=== PATIENT | male | born 1950 | race Caucasian/White ===

== ENCOUNTER 2018-04-07 16:15 | Emergency (ER) | payer MEDICARE ==
--- NOTE | 2018-04-07 18:14 | ER Document Report ---
ED Fall - General Chief Complaint: Fall Stated Complaint: FALL/RIB PAIN Time Seen by Provider: 04/07/18 17:38 Primary Care Provider: SOSA ALLEN [NO LOCAL MD] - Follow up as needed Notes: 67-year-old male to emergency department for evaluation of right posterior chest wall pain and right hip pain. Hurts to take a deep breath. Fell several days ago. Pain is getting worse. Denies any loss of consciousness. No neck pain, back pain. No abdominal pain. No hematuria. No other symptoms at this time. Was going to see his primary care doctor but they said that they would not be able to get x-rays so sent him here for initial evaluation and treatment. - HPI Occurred: Other - Several days ago Where: Home Context: Tripped Associated symptoms: denies: Lost consciousness, Dazed/confused, Difficulty breathing, Difficulty walking, Became dizzy/fainted, Blood in stool Location of injury/pain: Chest, Hip - Related data Allergies/Adverse Reactions: No Known Allergies Allergy (Unverified 04/07/18 16:16) Past Medical History - General Information source: Patient - Social History Smoking Status: Former Smoker Chew tobacco use (# tins/day): No Frequency of alcohol use: Daily Drug Abuse: None Lives with: Spouse/Significant other Family History: Reviewed & Not Pertinent Patient has suicidal ideation: No Patient has homicidal ideation: No Renal/ Medical History: Denies: Hx Peritoneal Dialysis Review of Systems - Review of Systems Notes: Constitutional: denies: Chills, Diaphoresis, Fever, Malaise, Weakness EENT: denies: Eye discharge, Blurred vision, Tearing, Double vision, Nose congestion, Nose discharge, Throat swelling, Mouth pain Cardiovascular: denies: Palpitations, Heart racing, Orthopnea, Dyspnea, Chest pain Respiratory: denies: Cough, Hurts to breathe, Wheezing, Shortness of breath Gastrointestinal: denies: Abdominal pain, Diarrhea, Nausea, Vomiting, Black stools, bright red blood in stool Genitourinary: denies: Burning, Dysuria, Discharge, Frequency, Flank pain, Hematuria Musculoskeletal: denies: Joint pain, Joint swelling, Muscle pain, Muscle stiffness, back pain. Does complain of right hip pain and right posterior chest wall pain with bruising. Hematologic/Lymphatic: denies: Anemia, Easy bleeding, Easy bruising, Blood clots Neurological/Psychological: denies: Confusion, Dementia, Depression, Loss of consciousness Skin: No lesions, no masses, no skin breakdown, no abscesses Physical Exam - Vital signs Vitals: Temp Pulse Resp BP Pulse Ox 98.5 F 85 20 168/90 H 100 04/07/18 16:26 04/07/18 16:26 04/07/18 16:26 04/07/18 16:26 04/07/18 16:26 Interpretation: Normal - General General appearance: Appears well, Alert - HEENT Head: Normocephalic, Atraumatic Eyes: Normal Pupils: PERRL - Respiratory Respiratory status: No respiratory distress Chest status: Tender, Pain with deep breathing, Splinting, Other - Tenderness to palpation with ecchymosis noted on the right lower posterior chest wall. Breath sounds: Normal Chest palpation: Normal - Cardiovascular Rhythm: Regular Heart sounds: Normal auscultation Murmur: No - Abdominal Inspection: Normal Distension: No distension Bowel sounds: Normal Tenderness: Nontender Organomegaly: No organomegaly - Back Back: Normal, Nontender - Extremities General upper extremity: Normal inspection, Nontender, Normal color, Normal ROM, Normal temperature General lower extremity: Normal inspection, Tender - Wound tenderness to palpation right lateral trochanter area., Normal color, Normal ROM, Normal temperature, Normal weight bearing. No: Rodo's sign - Neurological Neuro grossly intact: Yes Cognition: Normal Orientation: AAOx4 [place] Coma Scale Eye Opening: Spontaneous [place] Coma Scale Verbal: Oriented Reg Coma Scale Motor: Obeys Commands Reg Coma Scale Total: 15 Speech: Normal Motor strength normal: LUE, RUE, LLE, RLE Sensory: Normal - Psychological Associated symptoms: Normal affect, Normal mood - Skin Skin Temperature: Warm Skin Moisture: Dry Skin Color: Normal, Other - Contusion to the right posterior chest wall Course - Re-evaluation Re-evalutation: 04/07/18 18:56 We will get x-ray of the right hip and chest/ribs. 04/07/18 20:16 Hip/Pelvis X-Ray 04/07/18 18:28 IMPRESSION: No fracture. Ribs w/Chest X-Ray 04/07/18 18:28 IMPRESSION: No fracture. 04/07/18 20:16 No evidence of fracture. Toradol was given. Will prescribe patient some medication for his pain. Recommend close outpatient follow-up. Patient did not want hydrocodone. Will give him a trial of Percocet instead and some anti- inflammatories. Will DC at this time in stable condition. - Vital Signs Vital signs: Temp Pulse Resp BP Pulse Ox 98.5 F 85 20 168/90 H 100 04/07/18 16:26 04/07/18 16:26 04/07/18 16:26 04/07/18 16:26 04/07/18 16:26 Discharge - Discharge Clinical Impression: Chest wall contusion Qualifiers: Encounter type: initial encounter Laterality: right Qualified Code(s): S20.211A - Contusion of right front wall of thorax, initial encounter Condition: Good Disposition: HOME, SELF-CARE Instructions: Rib Contusion ([facility]), Rib Injuries and Fractures ([facility]) Additional Instructions: Please continue to take deep breaths as a big concerning complication of rib fractures and contusions is a pneumonia that can develop due to not taking big deep breaths. Take your pain medication if needed. Follow-up with your regular doctor. Return for any worsening symptoms or concerns. Prescriptions: Meloxicam [Mobic] 7.5 mg PO DAILY 20 Days #20 tablet Oxycodone HCl/Acetaminophen [Percocet 5-325 mg Tablet] 1 tab PO Q6H PRN 5 Days #20 tablet PRN Reason: Referrals: LOCALMD,NO [NO LOCAL MD] - Follow up as needed
[2018-04-07] MEDS ORDERED: KETOROLAC TROMETHAMINE 60 MG/2 ML SDV IM ONE (18:57)
[2018-04-07] MEDS ORDERED: ACETAMINOPHEN 325 MG TABLET PO ONE (18:57)
--- NOTE | 2018-04-07 20:02 | RADIOLOGY REPORT (SQ) ---
EXAM DESCRIPTION: XR HIP 2 OR MORE VIEWS COMPLETED DATE/TME: 04/07/2018 18:28 CLINICAL HISTORY: 67 years, Male, fall Findings: Mild right hip degenerative changes. No fracture or dislocation. Soft tissues are unremarkable. IMPRESSION: No fracture.
--- NOTE | 2018-04-07 20:03 | RADIOLOGY REPORT (SQ) ---
EXAM DESCRIPTION: XR RIBS UNILATERAL WITH CHEST COMPLETED DATE/TME: 04/07/2018 18:28 CLINICAL HISTORY: 67 years, Male, fall Findings: The heart is mildly enlarged. No consolidation or pleural effusion. No pulmonary edema or pneumothorax. The right ribs appear intact with no displaced fracture. IMPRESSION: No fracture.
[2018-04-07] MEDS ORDERED: OXYCODONE-ACETAMINOPHEN 5-325 MG TABLET PO ONE (20:27)
[2018-04-07 20:57] VITALS: BP 176/96
== END 2018-04-07 21:01 | disposition home or self-care (01) ==
LOC: ER 16:15
DX: S20.211A Contusion of right front wall of thorax, initial encounter (principal); M25.551 Pain in right hip; W01.0XXA Fall on same level from slipping, tripping and stumbling without subsequent striking against object, initial encounter; Z87.891 Personal history of nicotine dependence
CPT/HCPCS: 99283; 96372; 73502; 71101; A9270 ×2; J1885

== ENCOUNTER → 2018-05-07 | Outpatient (CLI) | payer MEDICARE ==
--- NOTE | 2018-05-07 12:47 | RADIOLOGY REPORT (SQ) ---
EXAM DESCRIPTION: NM WHOLE BODY BONE SCAN COMPLETED DATE/TIME: 05/07/2018 12:26 pm REASON FOR STUDY: C61 MALIGNANT NEOPLASM OF PROSTATE C61 MALIGNANT NEOPLASM OF PROSTATE COMPARISON: Right ribs and PA chest film 04/07/2018 RADIONUCLIDE AND DOSE: 20.9 millicuries Tc99m MDP. The route of agent administration: Intravenous. ADDITIONAL DRUGS AND DOSES: None. TECHNIQUE: Routine delayed images at 3 hour post radionuclide injection acquired of the bony skeleto n including anterior and posterior whole-body projections and additional focused images as needed. LIMITATIONS: None. FINDINGS: BONES: Increased uptake right posterior 11th rib worrisome for a healing rib fracture. There is increased uptake along the right L1, L2 and L3 transverse processes also could be related to a healing fractures. There is increased uptake over the right knee lateral tibial plateau which could be seen with healing fracture. Increased uptake at the bilateral acromioclavicular joints, 1st carpometacarpal joints, and intertars al joints in characteristic locations for osteoarthritis. KIDNEYS: Symmetric excretion without obstruction. OTHER: No other significant finding. IMPRESSION: No bone scan findings worrisome for metastatic disease given history of prostate cancer. Healing right posterior 11th rib, and right L1, L2, and L3 transverse process fractures. Increased uptake right knee lateral tibial plateau also likely due to healing fracture COMMENT: Quality measure 147: Current bone scan is compared with any available plain radiographs, p rior bone scans, and CT/MRI. TECHNICAL DOCUMENTATION: JOB ID: [id number] [employer]- All Rights Reserved Reading location - IP/workstation name: [email or web address]
== END ==
LOC: RAD 08:25
PROVIDERS: ATTEND Urology
DX: C61 Malignant neoplasm of prostate (principal)
CPT/HCPCS: 78306; A9561; Q9969

== ENCOUNTER 2019-06-09 23:21 | Inpatient (IN) | payer MEDICARE ==
[2019-06-10 00:30] LABS: VENOUS BLOOD BASE EXCESS -0.8 mmol/L; VENOUS BLOOD HCO3 21.5 mmol/L (20-32); VENOUS BLOOD PCO2 30.3 mmHg (35-63); VENOUS BLOOD PH 7.47 (7.30-7.42)
[2019-06-10 00:30] LABS: ABSOLUTE LYMPHOCYTES (AUTO) 0.8 10^3/uL (0.5-4.7); ABSOLUTE MONOCYTES (AUTO) 1.6 10^3/uL (0.1-1.4); ABSOLUTE NEUT (AUTO) 8.9 10^3/uL (1.7-8.2); BASOPHILS % (AUTO) 0.2 % (0-2); HEMATOCRIT 42.4 % (37.9-51.0); HEMOGLOBIN 14.6 g/dL (13.5-17.0); LYMPHOCYTES % (AUTO) 7.4 % (13-45); MEAN CORPUSCULAR HEMOGLOBIN 31.7 pg (27.0-33.4); MEAN CORPUSCULAR HGB CONC 34.4 g/dL (32.0-36.0); MEAN CORPUSCULAR VOLUME 92 fl (80-97); MONOCYTES % (AUTO) 14.4 % (3-13); PLATELET COUNT 227 10^3/uL (150-450); RED CELL DISTRIBUTION WIDTH 13.3 % (11.5-14.0); TOTAL CELLS COUNTED % (AUTO) 100 %; WHITE BLOOD COUNT 11.4 10^3/uL (4.0-10.5)
[2019-06-10 00:44] LABS: ALBUMIN 4.1 g/dL (3.5-5.0); ALKALINE PHOSPHATASE 71 U/L (38-126); ANION GAP 17 (5-19); ASPARTATE AMINO TRANSFERASE 42 U/L (17-59); BILIRUBIN,DIRECT 0.7 mg/dL (0.0-0.4); BLOOD UREA NITROGEN 22 mg/dL (7-20); CALCIUM 9.4 mg/dL (8.4-10.2); CARBON DIOXIDE 21 mmol/L (22-30); CHLORIDE 89 mmol/L (98-107); GLUCOSE 111 mg/dL (75-110); POTASSIUM 3.5 mmol/L (3.6-5.0); TOTAL PROTEIN 7.7 g/dL (6.3-8.2)
[2019-06-10 00:48] LABS: INTERNATIONAL RATION (INR) 1.16; PROTHROMBIN TIME 14.9 SEC (11.4-15.4)
[2019-06-10] MEDS ORDERED: ACETAMINOPHEN 325 MG TABLET PO ONE (01:29)
[2019-06-10] MEDS ORDERED: NORMAL SALINE 1000 ML 1,000 ML IV ONE (01:29)
[2019-06-10] MEDS ORDERED: POTASSIUM CHLORIDE 10 MEQ TABLET.ER PO ONE (01:30)
--- NOTE | 2019-06-10 01:38 | ER Document Report ---
Entered by OTILIO TEMPLE SCRIBE 06/10/19 0016 Acting as scribe for:ELENITA MONTENEGRO IV, MD ED General - General Mode of Arrival: Medic Information source: Patient, Emergency Med Personnel TRAVEL OUTSIDE OF THE [place] IN LAST 30 DAYS: No <ELENITA MONTENEGRO IV - Last Filed: 06/10/19 05:14> <GUS PRIEST - Last Filed: 06/10/19 08:47> - General Chief Complaint: Fever Stated Complaint: MUSCLE SPASMS,BACK PAIN,REMORS,KNEE PAIN,NECK PAIN Time Seen by Provider: 06/10/19 00:12 Primary Care Provider: PREMA HERNANDEZ MD [NO LOCAL MD] - Follow up as needed Notes: This 69 year old male patient brought in by EMS presents to the ED today with complaints of lower extremity weakness that started x5 days ago. ED nurse reports that the patient recently returned from a 73-day cruise x7 days ago and his symptoms started x2 days after his return. ED nurse states that the patient also complained of fatigue, fever, and tremors. Patient denies body aches or cough. (ELENITA MONTENEGRO IV) - Related Data Allergies/Adverse Reactions: No Known Allergies Allergy (Unverified 04/07/18 16:16) Past Medical History - General Information source: Patient, Emergency Med Personnel - Social History Smoking Status: Former Smoker Cigarette use (# per day): Yes Chew tobacco use (# tins/day): No Smoking Education Provided: No Frequency of alcohol use: Rare Drug Abuse: None Family History: Reviewed & Not Pertinent Patient has suicidal ideation: No Patient has homicidal ideation: No - Past Medical History Cardiac Medical History: Reports: Hx Hypertension Malignancy Medical History: Reports Hx Prostate Cancer Past Surgical History: Reports: Hx Orthopedic Surgery - elbow <ELENITA MONTENEGRO IV - Last Filed: 06/10/19 05:14> Review of Systems - Review of Systems Constitutional: See HPI, Fever, Other - Fatigue EENT: No symptoms reported Cardiovascular: No symptoms reported Respiratory: No symptoms reported Gastrointestinal: No symptoms reported Genitourinary: No symptoms reported Male Genitourinary: No symptoms reported Musculoskeletal: See HPI, Other - Lower extremity weakness Skin: No symptoms reported Hematologic/Lymphatic: No symptoms reported Neurological/Psychological: See HPI, Tremor -: Yes All other systems reviewed and negative <ELENITA MONTENEGRO IV - Last Filed: 06/10/19 05:14> Physical Exam - General General appearance: Alert - HEENT Head: Normocephalic, Atraumatic Eyes: Normal Pupils: PERRL - Respiratory Respiratory status: No respiratory distress Chest status: Nontender Breath sounds: Normal Chest palpation: Normal - Cardiovascular Rhythm: Regular, Tachycardia Heart sounds: Normal auscultation Murmur: No Friction rub: No Gallop: None auscultated - Abdominal Inspection: Normal Distension: No distension Bowel sounds: Normal Tenderness: Nontender - Abdomen soft Organomegaly: No organomegaly - Back Back: Normal, Nontender - Extremities General upper extremity: Normal inspection General lower extremity: Normal inspection - Neurological Neuro grossly intact: Yes - Psychological Associated symptoms: Normal affect, Normal mood - Skin Skin Temperature: Warm Skin Moisture: Dry Skin Color: Normal <ELENITA MONTENEGRO IV - Last Filed: 06/10/19 05:14> - Vital signs Vitals: Resp 29 H 06/09/19 23:30 Course - Laboratory Result Diagrams: 06/09/19 23:25 06/09/19 23:25 - Consults dr. wei hernandez Time consulted: 05:00 - requested ct abd/pelvis given fever without source Consulted provider: will come to ER <ELENITA MONTENEGRO IV - Last Filed: 06/10/19 05:14> - Laboratory Result Diagrams: 06/09/19 23:25 06/09/19 23:25 <GUS PRIEST - Last Filed: 06/10/19 08:47> - Vital Signs Vital signs: Temp Pulse Resp BP Pulse Ox 98.8 F 17 132/77 H 100 06/10/19 07:02 06/10/19 07:00 06/10/19 07:00 06/10/19 07:00 - Laboratory Laboratory results interpreted by me: 06/09/19 06/09/19 06/09/19 23:25 23:25 23:46 WBC 11.4 H Lymph % (Auto) 7.4 L [place] % (Auto) 14.4 H Absolute Neuts (auto) 8.9 H Absolute Monos (auto) 1.6 H VBG pH VBG pCO2 Sodium 127.0 L Potassium 3.5 L Chloride 89 L Carbon Dioxide 21 L BUN 22 H Est GFR (MDRD) Non-Af 57 L Glucose 111 H Total Bilirubin 2.0 H Direct Bilirubin 0.7 H Urine Protein 30 H Urine Ketones 20 H Urine Blood SMALL H 06/09/19 23:54 WBC Lymph % (Auto) [place] % (Auto) Absolute Neuts (auto) Absolute Monos (auto) VBG pH 7.47 H VBG pCO2 30.3 L Sodium Potassium Chloride Carbon Dioxide BUN Est GFR (MDRD) Non-Af Glucose Total Bilirubin Direct Bilirubin Urine Protein Urine Ketones Urine Blood - Consults dr. wei hernandez Reason for consultation: 06/10/19 05:14 fever, hyponatremia, ataxia (MONIELENITA CEDENO IV) Discharge <ELENITA MONTENEGRO IV - Last Filed: 06/10/19 05:14> - Discharge Admitting Provider: [place] (Hospitalist) - Karin Valencia NP Unit Admitted: [facility] <GUS PRIEST - Last Filed: 06/10/19 08:47> - Discharge Clinical Impression: Ataxia, Hyponatremia, Pelvic abscess in male Fever Qualifiers: Fever type: unspecified Qualified Code(s): R50.9 - Fever, unspecified Condition: Good Disposition: ADMITTED INPATIENT Referrals: PREMA HERNANDEZ MD [NO LOCAL MD] - Follow up as needed I personally performed the services described in the documentation, reviewed and edited the documentation which was dictated to the scribe in my presence, and it accurately records my words and actions.
[2019-06-10 02:06] LABS: A TYPE INFLUENZA AG NEGATIVE (NEGATIVE); B INFLUENZA AG NEGATIVE (NEGATIVE)
--- NOTE | 2019-06-10 02:40 | RADIOLOGY REPORT (SQ) ---
CLINICAL INDICATION: FEVER, WEAKNESS. TECHNIQUE: A single portable AP view was obtained of the chest at 0219 hours. COMPARISON: April 07, 2018. FINDINGS: The cardiomediastinal silhouette is prominent but stable. The lungs are grossly clear. No evidence of effusion or pneumothorax. The visualized bones are unremarkable. IMPRESSION: No evidence of active intrathoracic disease. Chronic parenchymal lung change
--- NOTE | 2019-06-10 02:49 | RADIOLOGY REPORT (SQ) ---
INDICATION: ATAXIA. COMPARISON: None CORRELATION: None TECHNIQUE: Noncontrast spiral axial CT images were obtained from the skull base to vertex. This exam was performed according to our departmental dose-optimization program, which includes automated exposure control, adjustment of the mA and/or kV according to patient size and/or use of iterative reconstruction techniques. FINDINGS: There is no evidence of acute intracranial hemorrhage, midline shift, mass effect or mass lesion. Calderón-white differentiation is normal. There is no evidence of acute large territory infarct. Age-related involutional changes are identified. Presumed old small vessel ischemic changes are seen predominantly in a periventricular distribution.. The visualized paranasal sinuses are grossly clear. The orbits and eyeballs are unremarkable. The mastoid air cells are clear. Skull base and calvarium appear intact. IMPRESSION: No acute intracranial process is identified. Age-related involutional changes are identified. Presumed old small vessel ischemic changes are seen predominantly in a periventricular distribution.
[2019-06-10 04:14] LABS: APPEARANCE,URINE CLEAR; BILIRUBIN,URINE NEGATIVE (NEGATIVE); COLOR,URINE YELLOW; GLUCOSE, URINE NEGATIVE (NEGATIVE); KETONES,URINE 20 mg/dL (NEGATIVE); PROTEIN,URINE 30 mg/dL (NEGATIVE); URINE SPECIFIC GRAVITY 1.019; UROBILINOGEN,URINE NEGATIVE mg/dL (<2.0)
[2019-06-10] MEDS ORDERED: PIPERACILLIN/TAZOBACTAM 4.5 GM VIAL IV ONE (04:41)
[2019-06-10] MEDS ORDERED: NORMAL SALINE IV ONE (04:41)
[2019-06-10] MEDS: MAGNESIUM SULFATE/D5W 1 GM/100 ML RTUPB IV SCH ×2 (04:43→06:54)
--- NOTE | 2019-06-10 06:28 | RADIOLOGY REPORT (SQ) ---
EXAM DESCRIPTION: CT ABDOMEN PELVIS WITH IV CONTRAST COMPLETED DATE/TME: 06/10/2019 04:46 CLINICAL HISTORY: 69 years Male, elevated bilirubin, fever, CREAT 1.24 Comparison: None. Technique: IV contrast. Coronal and sagittal reformat. This exam was performed according to our departmental dose-optimization program, which includes automated exposure control, adjustment of the mA and/or kV according to patient size and/or use of iterative reconstruction technique. [facility]: Dose Right [facility]: CareDose [facility]: Dose Right [facility]: Teradose 4D [facility]: Certify LIMITATIONS: Arm position. Findings: 10 x 11 x 10 cm inflamed cystic mass of the right paracentral pelvis may indicate abscess. 10 x 7 x 2 cm loculated cystic lesion of the left paracentral pelvis at the medial aspect of the left psoas. On post excretion imaging, the mid and distal right ureter is not opacified. Mild dilation of the visualized proximal and mid right renal collecting system may involve low-grade obstruction. Advanced coronary arterial calcification/stent. Atherosclerotic vascular disease. Renal arterial calcification. Moderate left inguinal fat only hernia. 0.7 cm left renal stone. No ascites. No pneumoperitoneum. Nonvisualized appendix. No gross evidence of gallbladder inflammation, hepatobiliary obstruction, or portal vein defect. No bowel obstruction. No evidence of abdominal aortic aneurysm. No gross evidence of thecal sac/cord or nerve root compression. Inferior thorax, liver, gallbladder, pancreas, spleen, adrenals, renal system, gastrointestinal tract, pelvic organs, lymphatics, vasculature, and musculoskeleton appear otherwise unremarkable. IMPRESSION: 1. 11 cm right parapelvic mass may indicate an abscess, chronic hematoma, or other neoplasm. 2. 10 cm left paracentral tubular cystic collection medial to the left psoas indicate a lymphocele or other neoplasm. 3. Possible low-grade obstruction at the right distal ureter. 4. 0.7 cm nonobstructing left renal stone.
[2019-06-10] MEDS ORDERED: ACETAMINOPHEN 325 MG TABLET PO PRN (09:39)
[2019-06-10] MEDS ORDERED: MAG HYDROX/AL HYDROX/SIMETH SUSP 30 ML UDCUP PO PRN (09:45)
[2019-06-10] MEDS ORDERED: ONDANSETRON HCL INJ/PF 4 MG/2 ML SDV IV PRN (09:45)
[2019-06-10 10:30] LABS: ABSOLUTE LYMPHOCYTES (AUTO) 0.7 10^3/uL (0.5-4.7); ABSOLUTE MONOCYTES (AUTO) 1.5 10^3/uL (0.1-1.4); ABSOLUTE NEUT (AUTO) 9.3 10^3/uL (1.7-8.2); BASOPHILS % (AUTO) 0.3 % (0-2); HEMOGLOBIN 13.3 g/dL (13.5-17.0); LYMPHOCYTES % (AUTO) 5.7 % (13-45); MEAN CORPUSCULAR HEMOGLOBIN 32.4 pg (27.0-33.4); MEAN CORPUSCULAR HGB CONC 34.9 g/dL (32.0-36.0); MEAN CORPUSCULAR VOLUME 93 fl (80-97); MONOCYTES % (AUTO) 12.7 % (3-13); PLATELET COUNT 206 10^3/uL (150-450); RED CELL DISTRIBUTION WIDTH 13.3 % (11.5-14.0); SEGMENTED NEUTROPHILS % (AUTO) 81.3 % (42-78); TOTAL CELLS COUNTED % (AUTO) 100 %; WHITE BLOOD COUNT 11.4 10^3/uL (4.0-10.5)
[2019-06-10] MEDS ORDERED: DEXTROSE 5%-LACTATED RINGERS 1,000 ML IV PRN (10:46)
[2019-06-10] MEDS ORDERED: ALBUTEROL SULFATE HFA (90 MCG/PUFF) 8 GM MDI IH PRN (10:47)
[2019-06-10 10:48] LABS: ANION GAP 15 (5-19); BLOOD UREA NITROGEN 18 mg/dL (7-20); CALCIUM 8.5 mg/dL (8.4-10.2); CARBON DIOXIDE 19 mmol/L (22-30); CHLORIDE 95 mmol/L (98-107); GLUCOSE 129 mg/dL (75-110); POTASSIUM 4.3 mmol/L (3.6-5.0)
--- NOTE | 2019-06-10 10:58 | PDOC H&P ---
History of Present Illness Admission Date/PCP: 06/10/19 09:34 OLGA BHAGAT MD Patient complains of: Generalized weakness, fatigue, rigors History of Present Illness: ANGEL CLARK is a 69 year old male with a past medical history significant for hypertension, remote prostate cancer, and arthritis who presented to the emergency department last night with a complaint of 1 week of progressively worsening generalized weakness, severe fatigue, and rigors. He denies high fevers at home, although, admits that he has not been checking consistently. U norah arrival to the emergency department, he developed shortness of breath with hypoxia (70%) on room air and diarrhea. Of note, the patient returned from a 73-day cruise to [facility] 8 days ago and has been and self quarantine at home since. Evaluation in the emergency department revealed low-grade fever (99.6), tachycardia (HR 142), stable blood pressure, tachypnea (RR 36), and hypoxia on room air (70%). CBC shows mild leukocytosis with 11.4, lymphocytosis of 7.4, normal coags, dehydration by chemistry with mild hyponatremia, hypokalemia, mildly elevated BUN, total bili 2.0, normal lactic acid, normal troponin, benign urinalysis, negative flu. COVID[address] and chest x-ray are benign. Abdominal CT revealed multiple parapelvic masses possibly indicating abscess versus chronic hematoma or other neoplasm. He has been provided 1 dose of IV Zosyn and is referred to the hospitalist service for admission and management of the above-stated complaints and findings. Past Medical History Cardiac Medical History: Reports: Hyperlipidema, Hypertension Denies: Congestive Heart Failure, Coronary Artery Disease, Myocardial Infarction Pulmonary Medical History: Reports: None EENT Medical History: Reports: None Neurological Medical History: Reports: None Endocrine Medical History: Reports: None Renal/ Medical History: Reports: None Malignancy Medical History: Reports: Other - Prostate GI Medical History: Reports: None Musculoskeltal Medical History: Reports: None Skin Medical History: Reports: None Psychiatric Medical History: Reports: None Traumatic Medical History: Reports: None Hematology: Reports: None Infectious Medical History: Reports: None Past Surgical History Past Surgical History: Reports: Orthopedic Surgery - elbow, Other - Prostate Social History Information Source: Patient Lives with: Spouse/Significant other Smoking Status: Former Smoker Electronic Cigarette use?: No Frequency of Alcohol Use: None Hx Recreational Drug Use: No Hx Prescription Drug Abuse: No - Advance Directive Resuscitation Status: Do Not Resuscitate Surrogate healthcare decision maker:: The patient's , Razia Mendoza. Made multiple attempts to contact her by phone, call does not connect. Will need to verify patient's home phone number. Family History Family History: Reviewed & Not Pertinent Parental Family History Reviewed: Yes Children Family History Reviewed: Yes Sibling(s) Family History Reviewed.: Yes Medication/Allergy Home Medications: Aspirin [Ecotrin 81 mg EC Tablet] 1 tab PO DAILY 04/07/18 Furosemide [Lasix 20 mg Tablet] 1 tab PO DAILY 04/07/18 Meloxicam [Mobic] 7.5 mg PO DAILY 20 Days #20 tablet 04/07/18 Metoprolol Succinate 1 tab PO DAILY 04/07/18 Oxycodone HCl/Acetaminophen [Percocet 5-325 mg Tablet] 1 tab PO Q6H PRN 5 Days #20 tablet 04/07/18 Potassium Chloride 1 tab PO DAILY 04/07/18 Saw [place] 1 tab PO DAILY 04/07/18 Simvastatin 1 tab PO DAILY 04/07/18 Allergies/Adverse Reactions: No Known Allergies Allergy (Unverified 04/07/18 16:16) Review of Systems Constitutional: PRESENT: anorexia, chills, fatigue, headache(s), weakness, other - rigors. ABSENT: fever(s), weight gain, weight loss Eyes: ABSENT: visual disturbances Ears: ABSENT: hearing changes Nose, Mouth, and Throat: PRESENT: headache(s) Cardiovascular: ABSENT: chest pain, dyspnea on exertion, edema, orthropnea, palpitations Respiratory: ABSENT: cough, hemoptysis Gastrointestinal: PRESENT: diarrhea. ABSENT: abdominal pain, constipation, hematemesis, hematochezia, nausea, vomiting Genitourinary: ABSENT: dysuria, hematuria Musculoskeletal: ABSENT: joint swelling Integumentary: ABSENT: rash, wounds Neurological: ABSENT: abnormal gait, abnormal speech, confusion, dizziness, focal weakness, syncope Psychiatric: ABSENT: anxiety, depression, homidical ideation, suicidal ideation Endocrine: ABSENT: cold intolerance, heat intolerance, polydipsia, polyuria Hematologic/Lymphatic: ABSENT: easy bleeding, easy bruising Physical Exam Vital Signs: Temp Pulse Resp BP Pulse Ox 98.3 F 16 137/80 H 95 03/27/20 09:25 06/10/19 09:00 06/10/19 08:00 06/10/19 09:00 Intake & Output 06/09/19 06/10/19 06/11/19 06:59 06:59 06:59 Intake Total 1100 2740 Balance 1100 2740 Weight 88.1 kg General appearance: PRESENT: cooperative, mild distress, well-developed, well- nourished, other - Acutely ill-appearing Head exam: PRESENT: atraumatic, normocephalic Eye exam: PRESENT: conjunctiva pink, EOMI, PERRLA. ABSENT: scleral icterus Ear exam: PRESENT: normal external ear exam Mouth exam: PRESENT: dry mucosa, tongue midline Neck exam: ABSENT: carotid bruit, JVD, lymphadenopathy, thyromegaly Respiratory exam: PRESENT: decreased breath sounds - Possibly related to poor inspiratory effort; shallow tachypneic breathing, symmetrical, tachypnea, unlabored, other - Supplemental oxygen by nasal cannula; not home O2 dependent. ABSENT: rales, rhonchi, wheezes Cardiovascular exam: PRESENT: RRR, +S1, +S2, tachycardia. ABSENT: diastolic murmur, rubs, systolic murmur Pulses: PRESENT: +1 pedal pulses bilateral Vascular exam: PRESENT: normal capillary refill GI/Abdominal exam: PRESENT: normal bowel sounds, soft. ABSENT: distended, guarding, mass, organolmegaly, rebound, tenderness Rectal exam: PRESENT: deferred Extremities exam: PRESENT: full ROM. ABSENT: calf tenderness, clubbing, pedal edema Neurological exam: PRESENT: alert, awake, oriented to person, oriented to place, oriented to time, oriented to situation, CN II-XII grossly intact. ABSENT: motor sensory deficit Psychiatric exam: PRESENT: appropriate affect, normal mood. ABSENT: homicidal ideation, suicidal ideation Skin exam: PRESENT: dry, intact, warm. ABSENT: cyanosis, rash Results Laboratory Results: 06/09/19 23:25 06/09/19 23:25 06/09/19 06/09/19 06/09/19 23:25 23:25 23:25 WBC 11.4 H RBC 4.60 Hgb 14.6 Hct 42.4 MCV 92 MCH 31.7 MCHC 34.4 RDW 13.3 Plt Count 227 Seg Neutrophils % 78.0 VBG pH VBG pCO2 VBG HCO3 VBG Base Excess Sodium 127.0 L Potassium 3.5 L Chloride 89 L Carbon Dioxide 21 L Anion Gap 17 BUN 22 H Creatinine 1.24 Est GFR ( Amer) > 60 Glucose 111 H Lactic Acid Calcium 9.4 Magnesium 1.6 Total Bilirubin 2.0 H AST 42 Alkaline Phosphatase 71 Total Protein 7.7 Albumin 4.1 Lipase Urine Color Urine Appearance Urine pH Ur Specific [place] Urine Protein Urine Glucose (UA) Urine Ketones Urine Blood Urine RBC (Auto) 06/09/19 06/09/19 06/09/19 23:25 23:46 23:54 WBC RBC Hgb Hct MCV MCH MCHC RDW Plt Count Seg Neutrophils % VBG pH 7.47 H VBG pCO2 30.3 L VBG HCO3 21.5 VBG Base Excess -0.8 Sodium Potassium Chloride Carbon Dioxide Anion Gap BUN Creatinine Est GFR ( Amer) Glucose Lactic Acid Calcium Magnesium Total Bilirubin AST Alkaline Phosphatase Total Protein Albumin Lipase 190.5 Urine Color YELLOW Urine Appearance CLEAR Urine pH 5.0 Ur Specific [place] 1.019 Urine Protein 30 H Urine Glucose (UA) NEGATIVE Urine Ketones 20 H Urine Blood SMALL H Urine RBC (Auto) 2 06/09/19 06/10/19 06/10/19 23:54 03:32 06:35 WBC RBC Hgb Hct MCV MCH MCHC RDW Plt Count Seg Neutrophils % VBG pH VBG pCO2 VBG HCO3 VBG Base Excess Sodium Potassium Chloride Carbon Dioxide Anion Gap BUN Creatinine Est GFR ( Amer) Glucose Lactic Acid 1.3 2.1 1.0 Calcium Magnesium Total Bilirubin AST Alkaline Phosphatase Total Protein Albumin Lipase Urine Color Urine Appearance Urine pH Ur Specific [place] Urine Protein Urine Glucose (UA) Urine Ketones Urine Blood Urine RBC (Auto) 06/09/19 06/09/19 23:25 23:25 Creatine Kinase 94 Troponin I 0.022 Impressions: Chest X-Ray 06/10/19 01:27 IMPRESSION: No evidence of active intrathoracic disease. Chronic parenchymal lung change Head CT 06/10/19 01:27 IMPRESSION: No acute intracranial process is identified. Age-related involutional changes are identified. Presumed old small vessel ischemic changes are seen predominantly in a periventricular distribution. Abdomen/Pelvis CT 06/10/19 04:46 IMPRESSION: 1. 11 cm right parapelvic mass may indicate an abscess, chronic hematoma, or other neoplasm. 2. 10 cm left paracentral tubular cystic collection medial to the left psoas indicate a lymphocele or other neoplasm. 3. Possible low-grade obstruction at the right distal ureter. 4. 0.7 cm nonobstructing left renal stone. Assessment and Plan - Diagnosis (1) Acute respiratory failure with hypoxia Is this a current diagnosis for this admission?: Yes Plan: Patient presented with generalized symptoms of low grade fever, rigors, generalized weakness, and fatigue. Patient denies recent symptoms of cough or shortness of breath. However, while in the ED, the patient was found to be tachypneic with RR in the 30s and room air SpO2 of 70%. Influenza is negative. COVID19 pending. CXR is clear. ABG pending. Will continue supplemental oxygen as needed to maintain oxygen saturations >89% Will avoid nebulizers at this time and provide albuterol MDI with spacer as needed for wheezing. (2) SIRS (systemic inflammatory response syndrome) Is this a current diagnosis for this admission?: Yes Plan: Influenza negative. COVID19 pending. CXR clear. Blood cultures pending. Urinalysis clear. Stool culture pending Abdominal CT revealed multiple parapelvic masses possibly indicating abscess versus chronic hematoma or other neoplasm. - IR consulted for CT guided needle drainage and culture Continue IV Zosyn for possible intra-abdominal infection. Will adjust as cultures result and/or clear infectious process declares itself. (3) Obs/eval susp exp biolog agent Is this a current diagnosis for this admission?: Yes Plan: High suspicion for COVID19 Influenza negative. COVID testing pending Droplet and contact precautions. Respiratory support as needed. (4) Abnormal abdominal CT scan Is this a current diagnosis for this admission?: Yes Plan: Follow up CT guided needle drainage with cultures. Consider surgical consultation. Antibiotics as above. (5) Hyponatremia Is this a current diagnosis for this admission?: Yes Plan: Has received 3L NS by ED providers. Follow up chemistry is pending. - Time Time Spent with patient: 35 or more minutes Medications reviewed and adjusted accordingly: Yes - Inpatient Certification Based on my medical assessment, after consideration of the patient's comorbidities, presenting symptoms, or acuity I expect that the services needed warrant INPATIENT care.: Yes I certify that my determination is in accordance with my understanding of Medicare's requirements for reasonable and necessary INPATIENT services [42 CFR 412.3e].: Yes Medical Necessity: Need Close Monitoring Due to Risk of Patient Decompensation, Need For IV Fluids, Need For Continuous Telemetry Monitoring, Need for Nebulizer Therapy and Monitoring of Response, Need for IV Antibiotics, Risk of Complication if Not Cared For in Hospital, Risk of Diagnosis Which Will Require Inpatient Eval/Care/Monitoring
--- NOTE | 2019-06-10 11:05 | Progress Note ---
Provider Note Provider Note: Responded to MACHINE MOLDER. Per nursing, they were at the bedside drawing labs when the patient was noted to have increased tachypnea, diaphoresis, with a heart rate increasing to the 120s and SPO2 desat to 80% on nasal cannula at 5 L/min. Patient was placed on NRB with continued tachycardia and low SpO2. ICU team and assurance senior, Dr. Radford came to the bedside to assist. Dr. Radford assisted with verifying the patient's code/intubation status. After discussion with patient, the patient has elected to be full code. Chest CT is ordered and patient is urgently transferred to the ICU. Appreciate nursing, MACHINE MOLDER team, and Dr. Radford's assistance. Critical Care time: [address] Raphael is updated on patient's condition/POC.
[2019-06-10] MEDS ORDERED: LORAZEPAM INJ 2 MG/1 ML VIAL ONE (11:16)
[2019-06-10] MEDS: LORAZEPAM INJ 2 MG/1 ML VIAL IV PRN ×4 (11:20→19:36)
--- NOTE | 2019-06-10 11:20 | EKG REPORT ---
SEVERITY:- ABNORMAL ECG - SINUS TACHYCARDIA PROBABLE LEFT ATRIAL ABNORMALITY LEFT AXIS DEVIATION ABNRM R PROG, CONSIDER ASMI OR LEAD PLACEMENT : Confirmed by: Gee Walsh MD 10-Jun-2019 11:20:10
[2019-06-10 11:35] LABS: ARTERIAL BLOOD BASE EXCESS -4.4 mmol/L; ARTERIAL BLOOD HCO3 18.1 mmol/L (20-24); ARTERIAL BLOOD O2 SATURATION 98.6 % (94-98); ARTERIAL BLOOD PCO2 26.7 mmHg (35-45); ARTERIAL BLOOD PH 7.45 (7.35-7.45); ARTERIAL BLOOD PO2 123.5 mmHg (80-100); ARTERIAL BLOOD TOTAL CO2 18.9 mmol/L (23-27)
--- NOTE | 2019-06-10 11:37 | RADIOLOGY REPORT (SQ) ---
EXAM DESCRIPTION: CT CHEST WITHOUT COMPLETED DATE/TIME: 06/10/2019 11:06 am REASON FOR STUDY: hypoxia COMPARISON: Chest x-ray done earlier the same day. TECHNIQUE: CT scan performed of the chest without intravenous contrast. Images reviewed with lung, soft tissue and bone windows. Reconstructed coronal and sagittal MPR images reviewed. All images st ored on PACS. All CT scanners at this facility use dose modulation, iterative reconstruction, and/or weight based d osing when appropriate to reduce radiation dose to as low as reasonably achievable (ALARA). [facility]: Dose Right [facility]: CareDose [facility]: Dose Right [facility]: Teradose 4D [facility]: [place] RADIATION DOSE: CT Rad equipment meets quality standard of care and radiation dose reduction techniq ues were employed. CTDIvol: 14.4 mGy. DLP: 468 mGy-cm. mGy. LIMITATIONS: No technical limitations. FINDINGS: LUNGS AND PLEURA: Minimal right basilar atelectasis. No consolidation. No effusions. HILAR AND MEDIASTINAL STRUCTURES: No identified masses or abnormal nodes. No obvious aneurysm. HEART AND VASCULAR STRUCTURES: No aneurysm. No pericardial effusion. UPPER ABDOMEN: No significant findings. Limited exam. THYROID AND OTHER SOFT TISSUES: No masses. No adenopathy. BONES: No significant finding. HARDWARE: None in the chest. OTHER: No other significant findings. IMPRESSION: Minimal right basilar atelectasis. No other significant findings. TECHNICAL DOCUMENTATION: JOB ID: [id number] Quality ID # [id number]: Final reports with documentation of one or more dose reduction techniques (e.g., Au tomated exposure control, adjustment of the mA and/or kV according to patient size, use of iterative reconstruction technique) 2010 [employer]- All Rights Reserved Reading location - IP/workstation name: [facility]
[2019-06-10] MEDS ORDERED: INFLUENZA QUAD (6MOS+) 2019-20 VAC 0.5 ML SYR IM ONE (11:39)
[2019-06-10 11:40] LABS: ARTERIAL BLOOD FIO2 4L
[2019-06-10] MEDS ORDERED: ACETAMINOPHEN 650 MG SUPP.RECT PR ONE ×2 (12:49→19:26)
[2019-06-10] MEDS: DOCUSATE SODIUM 100 MG CAPSULE PO SCH (13:14)
--- NOTE | 2019-06-10 13:37 | PDOC CRITICAL CARE PROG REPORT ---
General Date:: 06/10/19 ICU Day:: 1 Hospital Day:: 1 Resuscitation Status: Chemical Code Only Events in the past 12 to 24 Hours:: 69-year-old white male who was in fairly good health. Just returned from a 73- day cruise from [place]. He seemed to be well when he got home but apparently after carrying suitcases upstairs he was complaining of vague symptoms including possibly some neck discomfort. He as had some shaking and confusion. He presented to the ER with tachycardia, low oxygen saturations and some agitation. CT of the abdomen showed a fluid collection next to his bladder. He does have a remote history of prostate cancer and this is felt to possibly be a lymphocele. He also has a history of drinking but his states he did not drink more than 2-3 drinks per day on a trip. He has not been drinking subsequently. He has been complaining of some leg weakness and has fallen once or twice, once apparently on the boat and then he fell out of bed once he got home. He is now in the ICU and sedated with 1 dose of Ativan suggesting that alcohol withdrawal is a possibility. He is having the fluid collection in his pelvis tapped and depending on those findings may need additional work-up such as a LP. - Medications: Medications reviewed and adjusted accordingly: Yes Physical Exam Vital Signs: Temp Pulse Resp BP Pulse Ox 102.9 F H 116 H 26 H 134/87 H 100 06/10/19 11:29 06/10/19 11:29 06/10/19 11:29 06/10/19 11:29 06/10/19 11:29 Intake & Output 06/09/19 06/10/19 06/11/19 06:59 06:59 06:59 Intake Total 1100 2740 Output Total 310 Balance 1100 2430 Weight 88.1 kg 91.2 kg Weight/Height Weight 91.2 kg Height 6 ft General appearance: PRESENT: mild distress Eye exam: PRESENT: EOMI, PERRLA. ABSENT: conjunctival injection Mouth exam: PRESENT: neck supple Neck exam: PRESENT: full ROM. ABSENT: JVD, lymphadenopathy, meningismus, thyromegaly Respiratory exam: PRESENT: clear to auscultation [email or web address] Cardiovascular exam: PRESENT: RRR GI/Abdominal exam: PRESENT: soft. ABSENT: tenderness Extremities exam: ABSENT: joint swelling Neurological exam: PRESENT: alert, awake, oriented to person, oriented to place, oriented to time Psychiatric exam: PRESENT: anxious Skin exam: PRESENT: dry, warm Laboratory/Radiographs Laboratory Results: 06/10/19 10:11 06/10/19 10:11 06/09/19 06/09/19 06/09/19 23:25 23:25 23:25 WBC 11.4 H RBC 4.60 Hgb 14.6 Hct 42.4 MCV 92 MCH 31.7 MCHC 34.4 RDW 13.3 Plt Count 227 Seg Neutrophils % 78.0 Carbonic Acid HCO3/H2CO3 Ratio ABG pH ABG pCO2 ABG pO2 ABG HCO3 ABG O2 Saturation ABG Base Excess VBG pH VBG pCO2 VBG HCO3 VBG Base Excess FiO2 Sodium 127.0 L Potassium 3.5 L Chloride 89 L Carbon Dioxide 21 L Anion Gap 17 BUN 22 H Creatinine 1.24 Est GFR ( Amer) > 60 Glucose 111 H Lactic Acid Calcium 9.4 Magnesium 1.6 Ferritin Total Bilirubin 2.0 H AST 42 Alkaline Phosphatase 71 Total Protein 7.7 Albumin 4.1 Lipase Urine Color Urine Appearance Urine pH Ur Specific [place] Urine Protein Urine Glucose (UA) Urine Ketones Urine Blood Urine RBC (Auto) 06/09/19 06/09/19 06/09/19 23:25 23:46 23:54 WBC RBC Hgb Hct MCV MCH MCHC RDW Plt Count Seg Neutrophils % Carbonic Acid HCO3/H2CO3 Ratio ABG pH ABG pCO2 ABG pO2 ABG HCO3 ABG O2 Saturation ABG Base Excess VBG pH 7.47 H VBG pCO2 30.3 L VBG HCO3 21.5 VBG Base Excess -0.8 FiO2 Sodium Potassium Chloride Carbon Dioxide Anion Gap BUN Creatinine Est GFR ( Amer) Glucose Lactic Acid Calcium Magnesium Ferritin Total Bilirubin AST Alkaline Phosphatase Total Protein Albumin Lipase 190.5 Urine Color YELLOW Urine Appearance CLEAR Urine pH 5.0 Ur Specific [place] 1.019 Urine Protein 30 H Urine Glucose (UA) NEGATIVE Urine Ketones 20 H Urine Blood SMALL H Urine RBC (Auto) 2 06/09/19 06/10/19 06/10/19 23:54 03:32 06:35 WBC RBC Hgb Hct MCV MCH MCHC RDW Plt Count Seg Neutrophils % Carbonic Acid HCO3/H2CO3 Ratio ABG pH ABG pCO2 ABG pO2 ABG HCO3 ABG O2 Saturation ABG Base Excess VBG pH VBG pCO2 VBG HCO3 VBG Base Excess FiO2 Sodium Potassium Chloride Carbon Dioxide Anion Gap BUN Creatinine Est GFR ( Amer) Glucose Lactic Acid 1.3 2.1 1.0 Calcium Magnesium Ferritin Total Bilirubin AST Alkaline Phosphatase Total Protein Albumin Lipase Urine Color Urine Appearance Urine pH Ur Specific [place] Urine Protein Urine Glucose (UA) Urine Ketones Urine Blood Urine RBC (Auto) 06/10/19 06/10/19 06/10/19 10:11 10:11 10:25 WBC 11.4 H RBC 4.10 L Hgb 13.3 L Hct 38.0 MCV 93 MCH 32.4 MCHC 34.9 RDW 13.3 Plt Count 206 Seg Neutrophils % 81.3 H Carbonic Acid 0.80 L HCO3/H2CO3 Ratio 22:1 ABG pH 7.45 ABG pCO2 26.7 L ABG pO2 123.5 H ABG HCO3 18.1 L ABG O2 Saturation 98.6 H ABG Base Excess -4.4 VBG pH VBG pCO2 VBG HCO3 VBG Base Excess FiO2 4L Sodium 128.6 L Potassium 4.3 Chloride 95 L Carbon Dioxide 19 L Anion Gap 15 BUN 18 Creatinine 1.14 Est GFR ( Amer) > 60 Glucose 129 H Lactic Acid Calcium 8.5 Magnesium Ferritin 949.00 H Total Bilirubin AST Alkaline Phosphatase Total Protein Albumin Lipase Urine Color Urine Appearance Urine pH Ur Specific [place] Urine Protein Urine Glucose (UA) Urine Ketones Urine Blood Urine RBC (Auto) 06/09/19 06/09/19 23:25 23:25 Creatine Kinase 94 Troponin I 0.022 Impressions: Chest CT 06/10/19 00:00 IMPRESSION: Minimal right basilar atelectasis. No other significant findings. Chest X-Ray 06/10/19 01:27 IMPRESSION: No evidence of active intrathoracic disease. Chronic parenchymal lung change Head CT 06/10/19 01:27 IMPRESSION: No acute intracranial process is identified. Age-related involutional changes are identified. Presumed old small vessel ischemic changes are seen predominantly in a periventricular distribution. Abdomen/Pelvis CT 06/10/19 04:46 IMPRESSION: 1. 11 cm right parapelvic mass may indicate an abscess, chronic hematoma, or other neoplasm. 2. 10 cm left paracentral tubular cystic collection medial to the left psoas indicate a lymphocele or other neoplasm. 3. Possible low-grade obstruction at the right distal ureter. 4. 0.7 cm nonobstructing left renal stone. Assessment and Plan - Diagnosis (1) Acute respiratory failure with hypoxia Is this a current diagnosis for this admission?: Yes Plan: Patient presented with generalized symptoms of low grade fever, rigors, generalized weakness, and fatigue. Patient denies recent symptoms of cough or shortness of breath. However, while in the ED, the patient was found to be tachypneic with RR in the 30s and room air SpO2 of 70%. Influenza is negative. COVID19 pending. CXR is clear. ABG pending. Will continue supplemental oxygen as needed to maintain oxygen saturations >89% Will avoid nebulizers at this time and provide albuterol MDI with spacer as needed for wheezing. (2) Fever Qualifiers: Fever type: unspecified Qualified Code(s): R50.9 - Fever, unspecified Is this a current diagnosis for this admission?: Yes Plan: Impression: Possible pelvic abscess Hx of prostate cancer Possible acute illness related to travel to [place] Rule out viral process including HANK 19 Plan: Ultrasound-guided drainage of pelvic abscess Empiric antibiotics have been initiated Consider LP after above I have spoken to his hydraulic operator who spoke to his for me IV fluids taking the hyponatremia into account Further evaluation pending course Critical Time Critical Time (minutes): 60 Level of Care: ICU - High complexity case -: 1. The care of a critical patient is a dynamic process. This note is a pharmaceutical specialty representative synopsis but static in nature. The timeframe for treatments given in order is not necessarily the actual time these treatments may have been done. 2. This patient requires critical care secondary to ongoing requirements for therapy not offered or safe outside the critical care environment. Transfer to a lower level of care will result in altered life or limb morbidity and mortality. 3. Multidisciplinary rounds completed. 4. ABCDE bundle addressed.
[2019-06-10] MEDS ORDERED: NORMAL SALINE 1000 ML 1,000 ML IV PRN (13:55)
[2019-06-10] MEDS ORDERED: HEPARIN SOD (PORCINE) 5,000 UNIT/ML 1 ML VIAL SUBCUT SCH (14:00)
--- NOTE | 2019-06-10 14:07 | PDOC CONSULTATION ---
Consultation Consult Date: 06/10/19 Provider Consulted: DEEPTHI CASTRO History of Present Illness Admission Date/PCP: 06/10/19 09:34 OLGA BHAGAT MD Patient complains of: Generalized malaise History of Present Illness: ANGEL CLARK is a 69 year old male who is status post a recent 2-1/2 months long cruise through [facility] presenting with vague complaints and generalized malaise with confusion and mental status changes. Patient is unable to provide a history. But patient came into the ER with apparent respiratory symptoms and compromise. Uncertain whether he had any complaints of abdominal pain. Part of his work-up included a CT scan which demonstrated fluid collecti ons in the abdomen that were well loculated. Patient did have a robotic prostatectomy for prostate cancer several months ago. Uncertain whether he had any complications. But apparently he did well enough that he could go on a cruise. Past Medical History Cardiac Medical History: Reports: Hyperlipidema, Hypertension Denies: Congestive Heart Failure, Coronary Artery Disease, Myocardial Infarction Pulmonary Medical History: Reports: None EENT Medical History: Reports: None Neurological Medical History: Reports: None Endocrine Medical History: Reports: None Renal/ Medical History: Reports: None Malignancy Medical History: Reports: Other - Prostate GI Medical History: Reports: None Musculoskeltal Medical History: Reports: None Skin Medical History: Reports: None Psychiatric Medical History: Reports: None Traumatic Medical History: Reports: None Hematology: Reports: None Infectious Medical History: Reports: None Past Surgical History Past Surgical History: Reports: Orthopedic Surgery - elbow, Other - Prostate Social History Lives with: Spouse/Significant other Smoking Status: Former Smoker Electronic Cigarette use?: No Frequency of Alcohol Use: Heavy Hx Recreational Drug Use: No Hx Prescription Drug Abuse: No - Advance Directive Resuscitation Status: Chemical Code Only Family History Family History: Reviewed & Not Pertinent Parental Family History Reviewed: No Children Family History Reviewed: No Sibling(s) Family History Reviewed.: No Medication/Allergy Home Medications: Aspirin [Ecotrin 81 mg EC Tablet] 1 tab PO DAILY 04/07/18 Furosemide [Lasix 20 mg Tablet] 1 tab PO DAILY 04/07/18 [place] 1 tab PO DAILY 04/07/18 Simvastatin 20 mg PO QHS 04/07/18 Losartan Potassium 100 mg PO DAILY 06/10/19 Metoprolol Tartrate [Lopressor 100 mg Tablet] 50 mg PO Q12 06/10/19 Allergies/Adverse Reactions: No Known Allergies Allergy (Unverified 04/07/18 16:16) Review of Systems ROS unobtainable: Due to mental status Physical Exam Vital Signs: Temp Pulse Resp BP Pulse Ox 102.9 F H 116 H 26 H 134/87 H 100 06/10/19 11:29 06/10/19 11:29 06/10/19 11:29 06/10/19 11:29 06/10/19 11:29 Intake & Output 06/09/19 06/10/19 06/11/19 06:59 06:59 06:59 Intake Total 1100 2740 Output Total 310 Balance 1100 2430 Weight 88.1 kg 91.2 kg General appearance: PRESENT: other - Confused. Sleepy but are easily arousable. Incoherent speech at times. Unable to provide any meaningful history. Respiratory exam: PRESENT: other - Decreased breath sounds. Cardiovascular exam: PRESENT: tachycardia GI/Abdominal exam: PRESENT: other - Soft, no apparent tenderness to palpation but difficult exam due to his mental status. Results Laboratory Results: 06/10/19 10:11 06/10/19 10:11 06/09/19 06/09/19 06/09/19 23:25 23:25 23:25 WBC 11.4 H RBC 4.60 Hgb 14.6 Hct 42.4 MCV 92 MCH 31.7 MCHC 34.4 RDW 13.3 Plt Count 227 Seg Neutrophils % 78.0 Carbonic Acid HCO3/H2CO3 Ratio ABG pH ABG pCO2 ABG pO2 ABG HCO3 ABG O2 Saturation ABG Base Excess VBG pH VBG pCO2 VBG HCO3 VBG Base Excess FiO2 Sodium 127.0 L Potassium 3.5 L Chloride 89 L Carbon Dioxide 21 L Anion Gap 17 BUN 22 H Creatinine 1.24 Est GFR ( Amer) > 60 Glucose 111 H Lactic Acid Calcium 9.4 Magnesium 1.6 Ferritin Total Bilirubin 2.0 H AST 42 Alkaline Phosphatase 71 Total Protein 7.7 Albumin 4.1 Lipase Urine Color Urine Appearance Urine pH Ur Specific [place] Urine Protein Urine Glucose (UA) Urine Ketones Urine Blood Urine RBC (Auto) 06/09/19 06/09/19 06/09/19 23:25 23:46 23:54 WBC RBC Hgb Hct MCV MCH MCHC RDW Plt Count Seg Neutrophils % Carbonic Acid HCO3/H2CO3 Ratio ABG pH ABG pCO2 ABG pO2 ABG HCO3 ABG O2 Saturation ABG Base Excess VBG pH 7.47 H VBG pCO2 30.3 L VBG HCO3 21.5 VBG Base Excess -0.8 FiO2 Sodium Potassium Chloride Carbon Dioxide Anion Gap BUN Creatinine Est GFR ( Amer) Glucose Lactic Acid Calcium Magnesium Ferritin Total Bilirubin AST Alkaline Phosphatase Total Protein Albumin Lipase 190.5 Urine Color YELLOW Urine Appearance CLEAR Urine pH 5.0 Ur Specific [place] 1.019 Urine Protein 30 H Urine Glucose (UA) NEGATIVE Urine Ketones 20 H Urine Blood SMALL H Urine RBC (Auto) 2 06/09/19 06/10/19 06/10/19 23:54 03:32 06:35 WBC RBC Hgb Hct MCV MCH MCHC RDW Plt Count Seg Neutrophils % Carbonic Acid HCO3/H2CO3 Ratio ABG pH ABG pCO2 ABG pO2 ABG HCO3 ABG O2 Saturation ABG Base Excess VBG pH VBG pCO2 VBG HCO3 VBG Base Excess FiO2 Sodium Potassium Chloride Carbon Dioxide Anion Gap BUN Creatinine Est GFR ( Amer) Glucose Lactic Acid 1.3 2.1 1.0 Calcium Magnesium Ferritin Total Bilirubin AST Alkaline Phosphatase Total Protein Albumin Lipase Urine Color Urine Appearance Urine pH Ur Specific [place] Urine Protein Urine Glucose (UA) Urine Ketones Urine Blood Urine RBC (Auto) 06/10/19 06/10/19 06/10/19 10:11 10:11 10:25 WBC 11.4 H RBC 4.10 L Hgb 13.3 L Hct 38.0 MCV 93 MCH 32.4 MCHC 34.9 RDW 13.3 Plt Count 206 Seg Neutrophils % 81.3 H Carbonic Acid 0.80 L HCO3/H2CO3 Ratio 22:1 ABG pH 7.45 ABG pCO2 26.7 L ABG pO2 123.5 H ABG HCO3 18.1 L ABG O2 Saturation 98.6 H ABG Base Excess -4.4 VBG pH VBG pCO2 VBG HCO3 VBG Base Excess FiO2 4L Sodium 128.6 L Potassium 4.3 Chloride 95 L Carbon Dioxide 19 L Anion Gap 15 BUN 18 Creatinine 1.14 Est GFR ( Amer) > 60 Glucose 129 H Lactic Acid Calcium 8.5 Magnesium Ferritin 949.00 H Total Bilirubin AST Alkaline Phosphatase Total Protein Albumin Lipase Urine Color Urine Appearance Urine pH Ur Specific [place] Urine Protein Urine Glucose (UA) Urine Ketones Urine Blood Urine RBC (Auto) 06/09/19 06/09/19 23:25 23:25 Creatine Kinase 94 Troponin I 0.022 Impressions: Chest CT 06/10/19 00:00 IMPRESSION: Minimal right basilar atelectasis. No other significant findings. Chest X-Ray 06/10/19 01:27 IMPRESSION: No evidence of active intrathoracic disease. Chronic parenchymal lung change Head CT 06/10/19 01:27 IMPRESSION: No acute intracranial process is identified. Age-related involutional changes are identified. Presumed old small vessel ischemic changes are seen predominantly in a periventricular distribution. Abdomen/Pelvis CT 06/10/19 04:46 IMPRESSION: 1. 11 cm right parapelvic mass may indicate an abscess, chronic hematoma, or other neoplasm. 2. 10 cm left paracentral tubular cystic collection medial to the left psoas indicate a lymphocele or other neoplasm. 3. Possible low-grade obstruction at the right distal ureter. 4. 0.7 cm nonobstructing left renal stone. Assessment & Plan - Diagnosis (1) Abnormal abdominal CT scan Is this a current diagnosis for this admission?: Yes Plan: Agree with plans for interventional radiology drainage of intra-abdominal fluid collections. I have reviewed the CT scan with radiology. CT scan does not demonstrate any findings that suggest gastrointestinal pathology. Likely these fluid collections are related with his prostate surgery. They could represent lymphoceles or infected hematomas or infected post operative fluid collections. Patient is awake enough to determine whether he has any tenderness on exam and although abdominal exam is not perfect due to his mental status I do not see any evidence of tenderness. He does not complain of abdominal pain. I do not see any role for surgical intervention in this patient. Will defer to hospitalist/supervisor telephone information this expertise in managing this patient.
--- NOTE | 2019-06-10 15:11 | RADIOLOGY REPORT (SQ) ---
EXAM DESCRIPTION: U/S DRAINAGE RETRO/PERITONEAL IMAGES COMPLETED DATE/TIME: 06/10/2019 3:00 pm REASON FOR STUDY: perivesicular fluid collection COMPARISON CT abdomen pelvis done earlier the same day. LIMITATIONS: None. PROCEDURE: After obtaining informed consent, the procedure was performed at bedside due to the patie nt's isolation status. Ultrasound was used to identify the pocket of fluid in the right aspect of th e pelvis. An appropriate access site was selected. The patient was prepped and draped in usual ster ile fashion. The access site was anesthetized with 10 mL 1% lidocaine. Using ultrasound guidance t he collection was cannulated there is immediate return of straw-colored clear fluid. A guidewire was placed. Sequential dilatation performed and an 8 [place] APD catheter placed and formed in the fluid collection. 500 mL of clear straw-colored fluid was removed. Catheter was then removed. Sterile d ressing applied. There were no complications. IMPRESSION: Successful ultrasound guided drainage of the right pelvic fluid collection. Samples wer e obtained and sent to pathology for evaluation. COMMENT: Patient medication list reviewed: Yes- Quality ID# [id number]:Eligible professional attests to doc umenting in the medical record they obtained, updated, or reviewed the patient's current medications. TECHNICAL DOCUMENTATION: JOB ID: [id number] 2010 [employer]- All Rights Reserved Reading location - IP/workstation name: [email or web address]
--- NOTE | 2019-06-10 16:17 | Operative Report ---
Bedside Procedure - History of Present Illness Indication for Procedure: Fever altered mental status Date: 06/10/19 Provider: JUAN MIGUEL SALCEDO - Additional Procedures spinal tap Time performed: 16:00 - 69-year-old white male who recently returned from a cruise to [facility]. He has a fever white count and altered mental status of unclear etiology. consented to the spinal tap. He was placed in the left lateral position with the knees drawn up toward the nose. Lidocaine was applied subcutaneously. A #20 spinal needle was used to enter the L4-5 space. Clear fluid was easily obtained and sent for appropriate studies. The procedure was well-tolerated.
[2019-06-10] MEDS: PIPERACILLIN SODIUM/TAZOBACTAM 3.375 GM in NORMAL SALINE 100 ML IV SCH ×2 (17:56→17:57)
[2019-06-10] MEDS: PANTOPRAZOLE SODIUM 40 MG TABLET.DR PO SCH (17:58)
[2019-06-10 18:27] LABS: GLUCOSE,CSF 69 mg/dL (40-70); PROTEIN,CSF 53 mg/dL (12-60)
[2019-06-10 19:15] LABS: APPEARANCE ALL TUBES CLEAR; COLOR ALL TUBES COLORLESS; CSF TUBE NUMBER 3
[2019-06-10 19:17] LABS: VOLUME TUBE 1 1.5 CC
[2019-06-10 19:19] LABS: VOLUME TUBE 2 0.5 CC
[2019-06-10 19:21] LABS: VOLUME TUBE 3 0.5 CC
[2019-06-10 19:24] LABS: RED BLOOD CELL,CSF 1 /uL (0-10); WHITE BLOOD CELL,CSF 0 /uL (0-5)
[2019-06-10] MEDS ORDERED: HALOPERIDOL LACTATE INJ 5 MG/1 ML VIAL ONE (19:33)
[2019-06-10] MEDS ORDERED: METOPROLOL TARTRATE PF/INJ 5 MG/5 ML SDV IV ONE (19:33)
[2019-06-10] MEDS ORDERED: FUROSEMIDE INJ/PF 40 MG/4 ML SDV ONE (19:33)
[2019-06-10] MEDS: FAMOTIDINE INJ/PF 20 MG/2 ML SDV IV SCH (21:49)
[2019-06-11] MEDS: PIPERACILLIN SODIUM/TAZOBACTAM 3.375 GM in NORMAL SALINE 100 ML IV SCH ×5 (01:07→23:14)
[2019-06-11] MEDS: PANTOPRAZOLE SODIUM 40 MG TABLET.DR PO SCH ×2 (05:18→18:28)
[2019-06-11] MEDS: LORAZEPAM INJ 2 MG/1 ML VIAL IV PRN ×5 (05:18→21:17)
[2019-06-11 05:19] LABS: ARTERIAL BLOOD BASE EXCESS -2.3 mmol/L; ARTERIAL BLOOD H2CO3 0.93 mmol/L (1.05-1.35); ARTERIAL BLOOD HCO3 20.7 mmol/L (20-24); ARTERIAL BLOOD PCO2 30.9 mmHg (35-45); ARTERIAL BLOOD PH 7.44 (7.35-7.45); ARTERIAL BLOOD PO2 103.2 mmHg (80-100); ARTERIAL BLOOD TOTAL CO2 21.7 mmol/L (23-27)
[2019-06-11 05:24] LABS: ABSOLUTE LYMPHOCYTES (AUTO) 0.8 10^3/uL (0.5-4.7); ABSOLUTE MONOCYTES (AUTO) 0.8 10^3/uL (0.1-1.4); ABSOLUTE NEUT (AUTO) 6.8 10^3/uL (1.7-8.2); BASOPHILS % (AUTO) 0.3 % (0-2); EOSINOPHILS % (AUTO) 0.1 % (0-6); HEMATOCRIT 38.5 % (37.9-51.0); HEMOGLOBIN 13.5 g/dL (13.5-17.0); LYMPHOCYTES % (AUTO) 9.4 % (13-45); MEAN CORPUSCULAR HEMOGLOBIN 32.6 pg (27.0-33.4); MEAN CORPUSCULAR HGB CONC 35.1 g/dL (32.0-36.0); MEAN CORPUSCULAR VOLUME 93 fl (80-97); MONOCYTES % (AUTO) 9.7 % (3-13); PLATELET COUNT 208 10^3/uL (150-450); RED BLOOD COUNT 4.15 10^6/uL (4.35-5.55); RED CELL DISTRIBUTION WIDTH 13.2 % (11.5-14.0); SEGMENTED NEUTROPHILS % (AUTO) 80.5 % (42-78); TOTAL CELLS COUNTED % (AUTO) 100 %; WHITE BLOOD COUNT 8.5 10^3/uL (4.0-10.5)
[2019-06-11 05:30] LABS: INTERNATIONAL RATION (INR) 1.35; PROTHROMBIN TIME 16.8 SEC (11.4-15.4)
[2019-06-11 05:32] LABS: PARTIAL THROMBOPLASTIN TIME 46.9 SEC (23.5-35.8)
[2019-06-11 05:34] LABS: ARTERIAL BLOOD FIO2 3L
[2019-06-11 05:50] LABS: ALBUMIN 3.3 g/dL (3.5-5.0); ALKALINE PHOSPHATASE 64 U/L (38-126); ANION GAP 12 (5-19); ASPARTATE AMINO TRANSFERASE 66 U/L (17-59); BILIRUBIN,DIRECT 0.6 mg/dL (0.0-0.4); BILIRUBIN,TOTAL 1.5 mg/dL (0.2-1.3); BLOOD UREA NITROGEN 22 mg/dL (7-20); CALCIUM 8.8 mg/dL (8.4-10.2); CARBON DIOXIDE 21 mmol/L (22-30); CHLORIDE 101 mmol/L (98-107); GLUCOSE 111 mg/dL (75-110); TOTAL PROTEIN 6.6 g/dL (6.3-8.2)
--- NOTE | 2019-06-11 07:02 | RADIOLOGY REPORT (SQ) ---
EXAM: XR Chest, 1 View EXAM DATE/TIME: 06/11/2019 6:09 AM CLINICAL HISTORY: The patient is 69 years old and is Male; pneumonia TECHNIQUE: Frontal view of the chest. COMPARISON: Chest CT from 06/10/2019 FINDINGS: LUNGS: The lungs are mildly hypoinflated but clear. No consolidation visualized. PLEURAL SPACE: No significant pleural effusion. No obvious pneumothorax. HEART: Stable mild enlargement of the cardiac silhouette MEDIASTINUM: Unremarkable. BONES/JOINTS: The bones are unchanged. IMPRESSION: No acute findings visualized in the chest.
[2019-06-11] MEDS ORDERED: ACETAMINOPHEN 650 MG SUPP.RECT PR ONE ×2 (07:31→14:33)
[2019-06-11] MEDS: NORMAL SALINE 1000 ML 1,000 ML IV PRN (08:03)
[2019-06-11] MEDS ORDERED: DEXTROSE 5%-LACTATED RINGERS 1,000 ML IV PRN (08:56)
--- NOTE | 2019-06-11 09:12 | PDOC PROGRESS REPORT ---
Subjective Progress Note for:: 06/11/19 Reason For Visit: RESPIRATORY DISTRESS Lymphocele drained by IR; patient being evaluated for possible malaria Physical Exam Vital Signs: Temp Pulse Resp BP Pulse Ox 101.1 F H 105 H 28 H 94/75 L 100 06/11/19 08:00 06/11/19 08:00 06/11/19 08:00 06/11/19 08:00 06/11/19 08:00 Intake & Output 06/10/19 06/11/19 06/12/19 06:59 06:59 06:59 Intake Total 1100 4040 Output Total 1920 125 Balance 1100 2120 -125 Weight 88.1 kg 91.2 kg Results Laboratory Results: 06/11/19 05:05 06/11/19 05:05 06/10/19 06/10/19 06/10/19 10:11 10:11 10:25 WBC 11.4 H RBC 4.10 L Hgb 13.3 L Hct 38.0 MCV 93 MCH 32.4 MCHC 34.9 RDW 13.3 Plt Count 206 Seg Neutrophils % 81.3 H Carbonic Acid 0.80 L HCO3/H2CO3 Ratio 22:1 ABG pH 7.45 ABG pCO2 26.7 L ABG pO2 123.5 H ABG HCO3 18.1 L ABG O2 Saturation 98.6 H ABG Base Excess -4.4 FiO2 4L Sodium 128.6 L Potassium 4.3 Chloride 95 L Carbon Dioxide 19 L Anion Gap 15 BUN 18 Creatinine 1.14 Est GFR ( Amer) > 60 Glucose 129 H Calcium 8.5 Ferritin 949.00 H Total Bilirubin AST Alkaline Phosphatase Total Protein Albumin TSH Fluid Tube Number CSF Volume CSF Appearance CSF Color CSF WBC CSF RBC CSF Glucose CSF Total Protein 06/10/19 06/10/19 06/11/19 17:30 17:30 05:05 WBC 8.5 RBC 4.15 L Hgb 13.5 Hct 38.5 MCV 93 MCH 32.6 MCHC 35.1 RDW 13.2 Plt Count 208 Seg Neutrophils % 80.5 H Carbonic Acid HCO3/H2CO3 Ratio ABG pH ABG pCO2 ABG pO2 ABG HCO3 ABG O2 Saturation ABG Base Excess FiO2 Sodium Potassium Chloride Carbon Dioxide Anion Gap BUN Creatinine Est GFR ( Amer) Glucose Calcium Ferritin Total Bilirubin AST Alkaline Phosphatase Total Protein Albumin TSH Fluid Tube Number 3 CSF Volume 2.0 CSF Appearance CLEAR CSF Color COLORLESS CSF WBC 0 CSF RBC 1 CSF Glucose 69 CSF Total Protein 53 06/11/19 06/11/19 06/11/19 05:05 05:05 05:06 WBC RBC Hgb Hct MCV MCH MCHC RDW Plt Count Seg Neutrophils % Carbonic Acid 0.93 L HCO3/H2CO3 Ratio 22:1 ABG pH 7.44 ABG pCO2 30.9 L ABG pO2 103.2 H ABG HCO3 20.7 ABG O2 Saturation 98.0 ABG Base Excess -2.3 FiO2 3L Sodium 134.4 L Potassium 4.0 Chloride 101 Carbon Dioxide 21 L Anion Gap 12 BUN 22 H Creatinine 1.18 Est GFR ( Amer) > 60 Glucose 111 H Calcium 8.8 Ferritin Total Bilirubin 1.5 H AST 66 H Alkaline Phosphatase 64 Total Protein 6.6 Albumin 3.3 L TSH 2.50 Fluid Tube Number CSF Volume CSF Appearance CSF Color CSF WBC CSF RBC CSF Glucose CSF Total Protein 06/09/19 06/09/19 06/11/19 23:25 23:25 05:05 Creatine Kinase 94 Troponin I 0.022 NT-Pro-B Natriuret Pep 1530 H Impressions: Chest CT 06/10/19 00:00 IMPRESSION: Minimal right basilar atelectasis. No other significant findings. Retroperitoneal Abscess Drainage 06/10/19 00:00 IMPRESSION: Successful ultrasound guided drainage of the right pelvic fluid collection. Samples were obtained and sent to pathology for evaluation. Head CT 06/10/19 01:27 IMPRESSION: No acute intracranial process is identified. Age-related involutional changes are identified. Presumed old small vessel ischemic changes are seen predominantly in a periventricular distribution. Abdomen/Pelvis CT 06/10/19 04:46 IMPRESSION: 1. 11 cm right parapelvic mass may indicate an abscess, chronic hematoma, or other neoplasm. 2. 10 cm left paracentral tubular cystic collection medial to the left psoas indicate a lymphocele or other neoplasm. 3. Possible low-grade obstruction at the right distal ureter. 4. 0.7 cm nonobstructing left renal stone. Chest X-Ray 06/11/19 06:00 IMPRESSION: No acute findings visualized in the chest. Assessment & Plan - Diagnosis (1) Lymphocele Is this a current diagnosis for this admission?: Yes Plan: Impression: Lymphocele pelvis drained by conventional radiology; abdomen reportedly benign. Recommendations: 1. I spoke with Dr. Mathew Radford this morning. There is no indication for surgical intervention at this time 2. We will sign off; reconsult surgery if clinically indicated
--- NOTE | 2019-06-11 09:21 | PDOC CRITICAL CARE PROG REPORT ---
General Date:: 06/11/19 ICU Day:: 2 Hospital Day:: 2 Resuscitation Status: Chemical Code Only Events in the past 12 to 24 Hours:: 69-year-old white male who was in fairly good health. Just returned from a 73- day cruise from [place]. He does not have a white count but continues to have occasional spells where he has high fever associated with shaking chills. The spinal tap is negative. The symptoms brought up the concern for malaria even the recent travel. He tells me he actually had malaria when he was around 13 years old when his father was in the [employer] stationed in [place]. He also states that he feels better. I would like to try to contact an ID specialist to discuss this case and will try to do so today. Also has some loose stools which have been sent for routine culture as well as O&P. Physical Exam Vital Signs: Temp Pulse Resp BP Pulse Ox 101.1 F H 105 H 28 H 94/75 L 100 06/11/19 08:00 06/11/19 08:00 06/11/19 08:00 06/11/19 08:00 06/11/19 08:00 Intake & Output 06/10/19 06/11/19 06/12/19 06:59 06:59 06:59 Intake Total 1100 4040 Output Total 1920 125 Balance 1100 2120 -125 Weight 88.1 kg 91.2 kg 91.2 kg Weight/Height Weight 91.2 kg Height 6 ft General appearance: PRESENT: no acute distress, well-developed, well-nourished Eye exam: PRESENT: EOMI, PERRLA. ABSENT: conjunctival injection Ear exam: ABSENT: bleeding Mouth exam: PRESENT: neck supple Neck exam: ABSENT: JVD, lymphadenopathy Respiratory exam: PRESENT: clear to auscultation ar[place], unlabored Cardiovascular exam: PRESENT: RRR GI/Abdominal exam: PRESENT: soft. ABSENT: tenderness Extremities exam: ABSENT: joint swelling Neurological exam: PRESENT: alert, oriented to person, oriented to place, oriented to time, oriented to situation Skin exam: PRESENT: dry, warm Laboratory/Radiographs Laboratory Results: 06/11/19 05:05 06/11/19 05:05 06/10/19 06/10/19 06/10/19 10:11 10:11 10:25 WBC 11.4 H RBC 4.10 L Hgb 13.3 L Hct 38.0 MCV 93 MCH 32.4 MCHC 34.9 RDW 13.3 Plt Count 206 Seg Neutrophils % 81.3 H Carbonic Acid 0.80 L HCO3/H2CO3 Ratio 22:1 ABG pH 7.45 ABG pCO2 26.7 L ABG pO2 123.5 H ABG HCO3 18.1 L ABG O2 Saturation 98.6 H ABG Base Excess -4.4 FiO2 4L Sodium 128.6 L Potassium 4.3 Chloride 95 L Carbon Dioxide 19 L Anion Gap 15 BUN 18 Creatinine 1.14 Est GFR ( Amer) > 60 Glucose 129 H Calcium 8.5 Ferritin 949.00 H Total Bilirubin AST Alkaline Phosphatase Total Protein Albumin TSH Fluid Tube Number CSF Volume CSF Appearance CSF Color CSF WBC CSF RBC CSF Glucose CSF Total Protein 06/10/19 06/10/19 06/11/19 17:30 17:30 05:05 WBC 8.5 RBC 4.15 L Hgb 13.5 Hct 38.5 MCV 93 MCH 32.6 MCHC 35.1 RDW 13.2 Plt Count 208 Seg Neutrophils % 80.5 H Carbonic Acid HCO3/H2CO3 Ratio ABG pH ABG pCO2 ABG pO2 ABG HCO3 ABG O2 Saturation ABG Base Excess FiO2 Sodium Potassium Chloride Carbon Dioxide Anion Gap BUN Creatinine Est GFR ( Amer) Glucose Calcium Ferritin Total Bilirubin AST Alkaline Phosphatase Total Protein Albumin TSH Fluid Tube Number 3 CSF Volume 2.0 CSF Appearance CLEAR CSF Color COLORLESS CSF WBC 0 CSF RBC 1 CSF Glucose 69 CSF Total Protein 53 06/11/19 06/11/19 06/11/19 05:05 05:05 05:06 WBC RBC Hgb Hct MCV MCH MCHC RDW Plt Count Seg Neutrophils % Carbonic Acid 0.93 L HCO3/H2CO3 Ratio 22:1 ABG pH 7.44 ABG pCO2 30.9 L ABG pO2 103.2 H ABG HCO3 20.7 ABG O2 Saturation 98.0 ABG Base Excess -2.3 FiO2 3L Sodium 134.4 L Potassium 4.0 Chloride 101 Carbon Dioxide 21 L Anion Gap 12 BUN 22 H Creatinine 1.18 Est GFR ( Amer) > 60 Glucose 111 H Calcium 8.8 Ferritin Total Bilirubin 1.5 H AST 66 H Alkaline Phosphatase 64 Total Protein 6.6 Albumin 3.3 L TSH 2.50 Fluid Tube Number CSF Volume CSF Appearance CSF Color CSF WBC CSF RBC CSF Glucose CSF Total Protein 06/09/19 06/09/19 06/11/19 23:25 23:25 05:05 Creatine Kinase 94 Troponin I 0.022 NT-Pro-B Natriuret Pep 1530 H Impressions: Chest CT 06/10/19 00:00 IMPRESSION: Minimal right basilar atelectasis. No other significant findings. Retroperitoneal Abscess Drainage 06/10/19 00:00 IMPRESSION: Successful ultrasound guided drainage of the right pelvic fluid collection. Samples were obtained and sent to pathology for evaluation. Head CT 06/10/19 01:27 IMPRESSION: No acute intracranial process is identified. Age-related involutional changes are identified. Presumed old small vessel ischemic changes are seen predominantly in a periventricular distribution. Abdomen/Pelvis CT 06/10/19 04:46 IMPRESSION: 1. 11 cm right parapelvic mass may indicate an abscess, chronic hematoma, or other neoplasm. 2. 10 cm left paracentral tubular cystic collection medial to the left psoas indicate a lymphocele or other neoplasm. 3. Possible low-grade obstruction at the right distal ureter. 4. 0.7 cm nonobstructing left renal stone. Chest X-Ray 06/11/19 06:00 IMPRESSION: No acute findings visualized in the chest. Assessment and Plan - Diagnosis (1) Acute respiratory failure with hypoxia Is this a current diagnosis for this admission?: Yes (2) Fever Qualifiers: Fever type: unspecified Qualified Code(s): R50.9 - Fever, unspecified Is this a current diagnosis for this admission?: Yes Plan: Impression: Pelvic fluid collection drained and consistent with a lymphocele Hx of prostate cancer Acute febrile illness related to travel to [place] Consider malaria and other unusual infections in the setting Plan: Empiric antibiotics to continue Discussed with hematology Blood parasite screen ordered IV fluids to resume Nursing has spoken with today and updated her Critical Time Critical Time (minutes): 25 Level of Care: ICU
[2019-06-11] MEDS ORDERED: VANCOMYCIN HCL INJ 1000 MG VIAL IV ONE (10:24)
[2019-06-11] MEDS ORDERED: VANCOMYCIN HCL 1,500 MG in DEXTROSE 5%-WATER 250 ML IV ONE (11:30)
[2019-06-11] MEDS: DOCUSATE SODIUM 100 MG CAPSULE PO SCH (12:28)
[2019-06-11] MEDS: ENOXAPARIN SODIUM INJ 40 MG/0.4 ML DISP.SYRIN SUBCUT SCH (12:31)
[2019-06-11] MEDS: FAMOTIDINE INJ/PF 20 MG/2 ML SDV IV SCH ×2 (12:32→21:17)
[2019-06-11] MEDS: VANCOMYCIN HCL 750 MG in DEXTROSE 5%-WATER 250 ML IV SCH ×2 (13:54→21:17)
[2019-06-11] MEDS ORDERED: HALOPERIDOL LACTATE INJ 5 MG/1 ML VIAL ONE (17:58)
[2019-06-11] MEDS: HALOPERIDOL LACTATE INJ 5 MG/1 ML VIAL IV PRN (18:00)
[2019-06-12] MEDS: NORMAL SALINE 1000 ML 1,000 ML IV PRN (02:03)
[2019-06-12] MEDS: HALOPERIDOL LACTATE INJ 5 MG/1 ML VIAL IV PRN ×4 (02:03→20:18)
[2019-06-12] MEDS: LORAZEPAM INJ 2 MG/1 ML VIAL IV PRN ×5 (04:35→20:18)
[2019-06-12 05:38] LABS: ABSOLUTE LYMPHOCYTES (AUTO) 0.3 10^3/uL (0.5-4.7); ABSOLUTE MONOCYTES (AUTO) 0.7 10^3/uL (0.1-1.4); ABSOLUTE NEUT (AUTO) 4.7 10^3/uL (1.7-8.2); BASOPHILS % (AUTO) 0.5 % (0-2); EOSINOPHILS % (AUTO) 0.3 % (0-6); HEMATOCRIT 34.2 % (37.9-51.0); HEMOGLOBIN 11.8 g/dL (13.5-17.0); LYMPHOCYTES % (AUTO) 5.5 % (13-45); MEAN CORPUSCULAR HEMOGLOBIN 31.7 pg (27.0-33.4); MEAN CORPUSCULAR HGB CONC 34.4 g/dL (32.0-36.0); MEAN CORPUSCULAR VOLUME 92 fl (80-97); MONOCYTES % (AUTO) 12.1 % (3-13); PLATELET COUNT 241 10^3/uL (150-450); RED CELL DISTRIBUTION WIDTH 13.2 % (11.5-14.0); SEGMENTED NEUTROPHILS % (AUTO) 81.6 % (42-78); TOTAL CELLS COUNTED % (AUTO) 100 %; WHITE BLOOD COUNT 5.8 10^3/uL (4.0-10.5)
[2019-06-12 05:56] LABS: ALBUMIN 2.7 g/dL (3.5-5.0); ALKALINE PHOSPHATASE 54 U/L (38-126); ANION GAP 10 (5-19); ASPARTATE AMINO TRANSFERASE 50 U/L (17-59); BILIRUBIN,TOTAL 0.7 mg/dL (0.2-1.3); BLOOD UREA NITROGEN 21 mg/dL (7-20); CALCIUM 8.4 mg/dL (8.4-10.2); CARBON DIOXIDE 18 mmol/L (22-30); CHLORIDE 105 mmol/L (98-107); GLUCOSE 109 mg/dL (75-110); POTASSIUM 3.7 mmol/L (3.6-5.0); TOTAL PROTEIN 5.3 g/dL (6.3-8.2)
[2019-06-12] MEDS: PANTOPRAZOLE SODIUM 40 MG TABLET.DR PO SCH ×2 (06:02→17:42)
[2019-06-12] MEDS: PIPERACILLIN SODIUM/TAZOBACTAM 3.375 GM in NORMAL SALINE 100 ML IV SCH ×2 (06:02→11:57)
--- NOTE | 2019-06-12 08:14 | RADIOLOGY REPORT (SQ) ---
EXAM DESCRIPTION: CHEST SINGLE VIEW IMAGES COMPLETED DATE/TIME: 06/12/2019 6:25 am REASON FOR STUDY: pneumonia COMPARISON: 06/11/2019 FINDINGS: One-view chest AP portable semi-upright. Low lung volumes. Slightly improved left basilar aeration. Mild persistent subsegmental volume loss here. No pneumothorax or developing opacities. TECHNICAL DOCUMENTATION: JOB ID: [id number] Reading location - IP/workstation name: [email or web address] [email or web address]
[2019-06-12] MEDS: ACETAMINOPHEN 650 MG SUPP.RECT PR PRN ×2 (09:13→14:52)
[2019-06-12] MEDS: FAMOTIDINE INJ/PF 20 MG/2 ML SDV IV SCH ×2 (09:14→21:49)
[2019-06-12] MEDS: VANCOMYCIN HCL 750 MG in DEXTROSE 5%-WATER 250 ML IV SCH ×2 (09:21→21:49)
[2019-06-12] MEDS: DOCUSATE SODIUM 100 MG CAPSULE PO SCH (09:21)
[2019-06-12] MEDS: ENOXAPARIN SODIUM INJ 40 MG/0.4 ML DISP.SYRIN SUBCUT SCH (09:21)
[2019-06-12 11:04] LABS: BLOOD PARASITE THICK SMEAR NO ORGANISMS SEEN
--- NOTE | 2019-06-12 13:36 | PDOC CRITICAL CARE PROG REPORT ---
General Date:: 06/12/19 Resuscitation Status: Chemical Code Only - He would want to be intubated if necessary but does not want CPR or countershocks if he codes Events in the past 12 to 24 Hours:: 69-year-old white male who was in fairly good health. Just returned from a 73- day cruise from [place]. He does not have a white count but continues to have occasional spells where he has high fever associated with shaking chills. The spinal tap is negative. The symptoms brought up the concern for malaria given the recent travel. He did undergo percutaneous drainage of what was felt to be a pelvic lymphocele from the previous prostate cancer. Gram stain was positive for gram-positive cocci and it has grown staph epi. I actually went to the micro lab and asked them to repeat the Gram stain and culture on the sample which they did because it seemed like it was clear initially but findings are the same. I told them that not need the chart the second one and charge the patient again as it confirmed the first finding. I did talk to the ID specialist for about whether this could be malaria and the pathologist will review the slides tomorrow but given the findings on the fluid from the lymphocele, I have to believe that this is all from the staph infection. He drained it completely but the drain was not left in place because the fluid appeared clear. Physical Exam Vital Signs: Temp Pulse Resp BP Pulse Ox 98.4 F 84 18 159/89 H 100 06/12/19 12:00 06/12/19 12:00 06/12/19 12:00 06/12/19 12:00 06/12/19 12:00 Intake & Output 06/11/19 06/12/19 06/13/19 06:59 06:59 06:59 Intake Total 4040 1800 1450 Output Total 1920 1255 415 Balance 2120 545 1035 Weight 91.2 kg 91.8 kg Weight/Height Weight 91.8 kg Height 6 ft General appearance: PRESENT: no acute distress Eye exam: PRESENT: EOMI, PERRLA. ABSENT: conjunctival injection Ear exam: ABSENT: bleeding Mouth exam: PRESENT: neck supple Neck exam: ABSENT: JVD, lymphadenopathy Respiratory exam: PRESENT: clear to auscultation arnoldo Cardiovascular exam: PRESENT: RRR GI/Abdominal exam: PRESENT: soft. ABSENT: tenderness Neurological exam: PRESENT: altered - he is intermittently confused Skin exam: PRESENT: dry, warm Laboratory/Radiographs Laboratory Results: 06/12/19 05:29 06/12/19 05:29 06/12/19 06/12/19 05:29 05:29 WBC 5.8 RBC 3.70 L Hgb 11.8 L Hct 34.2 L MCV 92 MCH 31.7 MCHC 34.4 RDW 13.2 Plt Count 241 Seg Neutrophils % 81.6 H Sodium 133.4 L Potassium 3.7 Chloride 105 Carbon Dioxide 18 L Anion Gap 10 BUN 21 H Creatinine 1.00 Est GFR ( Amer) > 60 Glucose 109 Calcium 8.4 Total Bilirubin 0.7 AST 50 Alkaline Phosphatase 54 Total Protein 5.3 L Albumin 2.7 L 06/10/19 17:30 Cerebral Spinal Fluid - Csf Gram Stain - Final 06/09/19 06/09/19 06/11/19 23:25 23:25 05:05 Creatine Kinase 94 Troponin I 0.022 NT-Pro-B Natriuret Pep 1530 H Impressions: Chest CT 06/10/19 00:00 IMPRESSION: Minimal right basilar atelectasis. No other significant findings. Retroperitoneal Abscess Drainage 06/10/19 00:00 IMPRESSION: Successful ultrasound guided drainage of the right pelvic fluid c ollection. Samples were obtained and sent to pathology for evaluation. Head CT 06/10/19 01:27 IMPRESSION: No acute intracranial process is identified. Age-related involutional changes are identified. Presumed old small vessel ischemic changes are seen predominantly in a periventricular distribution. Abdomen/Pelvis CT 06/10/19 04:46 IMPRESSION: 1. 11 cm right parapelvic mass may indicate an abscess, chronic hematoma, or other neoplasm. 2. 10 cm left paracentral tubular cystic collection medial to the left psoas indicate a lymphocele or other neoplasm. 3. Possible low-grade obstruction at the right distal ureter. 4. 0.7 cm nonobstructing left renal stone. Assessment and Plan - Diagnosis (1) Acute respiratory failure with hypoxia Is this a current diagnosis for this admission?: Yes (2) Fever Qualifiers: Fever type: unspecified Qualified Code(s): R50.9 - Fever, unspecified Is this a current diagnosis for this admission?: Yes Plan: Impression: Pelvic fluid collection drained and consistent with an infected lymphocele Hx of prostate cancer Acute febrile illness; recent travel to [place] Consider malaria and other unusual infections Plan: Stop Zosyn but continue vancomycin Discussed with hematology Blood parasite screen pending IV fluids to continue Critical Time Critical Time (minutes): 35 Level of Care: ICU -: 1. The care of a critical patient is a dynamic process. This note is a senior human resources representative synopsis but static in nature. The timeframe for treatments given in order is not necessarily the actual time these treatments may have been done. 2. This patient requires critical care secondary to ongoing requirements for therapy not offered or safe outside the critical care environment. Transfer to a lower level of care will result in altered life or limb morbidity and mortality. 3. Multidisciplinary rounds completed. 4. ABCDE bundle addressed.
[2019-06-12] MEDS: DEXTROSE 5%-NORMAL SALINE 1,000 ML IV PRN ×2 (13:50→21:50)
[2019-06-12] MEDS ORDERED: LABETALOL HCL INJ 20 MG/4 ML DISP.SYRIN IV ONE ×2 (23:28→23:44)
[2019-06-13] MEDS: ACETAMINOPHEN 650 MG SUPP.RECT PR PRN (01:50)
[2019-06-13 04:46] LABS: HEMATOCRIT 37.8 % (37.9-51.0); HEMOGLOBIN 13.1 g/dL (13.5-17.0); MEAN CORPUSCULAR HEMOGLOBIN 32.4 pg (27.0-33.4); MEAN CORPUSCULAR HGB CONC 34.8 g/dL (32.0-36.0); MEAN CORPUSCULAR VOLUME 93 fl (80-97); PLATELET COUNT 363 10^3/uL (150-450); RED BLOOD COUNT 4.05 10^6/uL (4.35-5.55); RED CELL DISTRIBUTION WIDTH 13.6 % (11.5-14.0); WHITE BLOOD COUNT 10.3 10^3/uL (4.0-10.5)
[2019-06-13 04:50] LABS: INTERNATIONAL RATION (INR) 1.27
[2019-06-13 04:51] LABS: PARTIAL THROMBOPLASTIN TIME 42.8 SEC (23.5-35.8)
[2019-06-13] MEDS ORDERED: DEXMEDETOMIDINE IN 0.9 % NACL 400 MCG/100 ML RTUPB IV ONE (04:55)
[2019-06-13] MEDS: DEXMEDETOMIDINE IN 0.9 % NACL 400 MCG/100 ML RTUPB IV PRN ×2 (05:00→22:11)
[2019-06-13 05:05] LABS: ALBUMIN 3.4 g/dL (3.5-5.0); ALKALINE PHOSPHATASE 83 U/L (38-126); ANION GAP 15 (5-19); ASPARTATE AMINO TRANSFERASE 71 U/L (17-59); BILIRUBIN,DIRECT 0.2 mg/dL (0.0-0.4); BLOOD UREA NITROGEN 19 mg/dL (7-20); CALCIUM 9.2 mg/dL (8.4-10.2); CARBON DIOXIDE 16 mmol/L (22-30); CHLORIDE 104 mmol/L (98-107); GLUCOSE 124 mg/dL (75-110); POTASSIUM 4.2 mmol/L (3.6-5.0); TOTAL PROTEIN 6.6 g/dL (6.3-8.2)
[2019-06-13 05:18] LABS: ABSOLUTE LYMPHOCYTES# (MANUAL) 0.5 10^3/uL (0.5-4.7); BAND NEUTROPHILS % (MANUAL) 6 % (3-5); BASOPHILS % (MANUAL) 0 % (0-2); EOSINOPHILS % (MANUAL) 0 % (0-6); LYMPHOCYTES % (MANUAL) 5 % (13-45); MONOCYTES % (MANUAL) 10 % (3-13); PLATELET COMMENT ADEQUATE; RBC MORPHOLOGY COMMENT NORMO-CYTIC/CHROMIC; SEGMENTED NEUTROPHILS % (MAN) 79 % (42-78); TOTAL CELLS COUNTED 100
--- NOTE | 2019-06-13 06:34 | RADIOLOGY REPORT (SQ) ---
EXAM DESCRIPTION: CT ABDOMEN PELVIS WITH IV CONTRAST COMPLETED DATE/TME: 06/13/2019 08:00 CLINICAL HISTORY: 69 years, Male, pelvic abscess COMPARISON: 06/10/2019 TECHNIQUE: Axial CT images of the abdomen and pelvis were obtained after the administration of IV contrast. Sagittal and coronal reformats were performed. [facility] 2058 Images stored on PACS. All CT scanners at this facility use dose modulation, iterative reconstruction, and/or weight based dosing when appropriate to reduce radiation dose to as low as reasonably achievable (ALARA). [facility]: Dose Right [facility]: CareDose [facility]: Dose Right [facility]: Teradose 4D [facility]: Smart Apptera LIMITATIONS: None. FINDINGS: The lung bases are clear. The liver, gallbladder, pancreas, spleen, and adrenal glands appear unremarkable. Both kidneys enhance normally. There is no evidence of hydronephrosis bilaterally. Again noted is a 7 mm nonobstructing stone along the lower pole the left kidney. There is no intraperitoneal free air or fluid. There are atherosclerotic calcifications of the abdominal aorta without evidence of an aneurysm. The stomach and small bowel appear unremarkable. The appendix is not uniquely identified. The colon contains some fluid. Again noted is a peripherally enhancing hypodense collection along the lower right pelvis measuring 10.7 x 8.9 x 10.2 cm with mild surrounding inflammatory changes, likely representing abscess. There is inflammation of the adjacent decompressed urinary bladder which contains a Lovelace catheter. Again noted is a tubular cystic structure along the lower left pelvis 5.8 x 2.3 x 9.6 cm. There are no definite surrounding inflammatory changes around the left pelvic cystic structure. There are no lytic or blastic bone lesions. IMPRESSION: Grossly stable right pelvic abscess with mild inflammation of the adjacent urinary bladder. Grossly stable tubular cystic structure along the lower left pelvis with no definite surrounding inflammatory changes. This may represent a lymphocele, loculated ascites or neoplasm. A superimposed infection is not excluded. TECHNICAL DOCUMENTATION: Quality ID # 436: Final reports with documentation of one or more dose reduction techniques (e.g., Automated exposure control, adjustment of the mA and/or kV according to patient size, use of iterative reconstruction technique) copyright 2011 [employer]- All Rights Reserved
--- NOTE | 2019-06-13 09:06 | RADIOLOGY REPORT (SQ) ---
EXAM DESCRIPTION: CHEST SINGLE VIEW IMAGES COMPLETED DATE/TIME: 06/13/2019 6:29 am REASON FOR STUDY: pneumonia COMPARISON: Previous day. NUMBER OF VIEWS: One view. TECHNIQUE: Single frontal radiographic image of the chest acquired. LIMITATIONS: None. FINDINGS: LUNGS AND PLEURA: Low lung volumes. No obvious infiltrate. Chronic elevation right diaph ragm. No pneumothorax. MEDIASTINUM AND HEART: Stable heart size and mediastinal structures. BONY STRUCTURES: No acute findings. HARDWARE: None. OTHER: No other significant finding. IMPRESSION: STABLE APPEARANCE OF THE CHEST. TECHNICAL DOCUMENTATION: JOB ID: [id number] Reading location - IP/workstation name: [facility]-
[2019-06-13] MEDS ORDERED: (PENDING PHARMACY ID) (Losartan Potassium [Losartan Potassium] 100 MG) PO SCH (10:00)
[2019-06-13] MEDS: ENOXAPARIN SODIUM INJ 40 MG/0.4 ML DISP.SYRIN SUBCUT SCH (10:19)
[2019-06-13] MEDS: FAMOTIDINE INJ/PF 20 MG/2 ML SDV IV SCH ×2 (10:30→22:15)
[2019-06-13 10:49] LABS: VANCOMYCIN,TROUGH 9.7 ug/mL (5.0-20.0)
[2019-06-13 11:05] LABS: BLOOD PARASITE SCREEN RESULT NO ORGANISMS SEEN
[2019-06-13] MEDS: METOPROLOL TARTRATE 50 MG TABLET PO SCH ×2 (12:55→22:12)
[2019-06-13] MEDS: DOCUSATE SODIUM 100 MG CAPSULE PO SCH (12:55)
[2019-06-13] MEDS: LOSARTAN POTASSIUM 50 MG TABLET PO SCH (12:56)
[2019-06-13] MEDS ORDERED: METOPROLOL TARTRATE PF/INJ 5 MG/5 ML SDV IV PRN (12:57)
[2019-06-13] MEDS: DEXTROSE 5%-NORMAL SALINE 1,000 ML IV PRN ×2 (13:44→23:45)
[2019-06-13] MEDS: LORAZEPAM INJ 2 MG/1 ML VIAL IV PRN (13:44)
[2019-06-13] MEDS: HALOPERIDOL LACTATE INJ 5 MG/1 ML VIAL IV PRN (13:46)
--- NOTE | 2019-06-13 14:36 | RADIOLOGY REPORT (SQ) ---
EXAM DESCRIPTION: VENOUS UNILATERAL LOWER IMAGES COMPLETED DATE/TIME: 06/13/2019 2:26 pm REASON FOR STUDY: RLE pain COMPARISON: None. TECHNIQUE: Dynamic and static huang scale and color images acquired of the right leg venous system. S elected spectral images acquired with additional compression and augmentation maneuvers. The contrala teral common femoral vein and saphenofemoral junction were also imaged. Images stored on PACS. LIMITATIONS: None. FINDINGS: COMMON FEMORAL: Normal phasicity, compression and augmentation. No visualized echogenic ma terial on huang scale. No defects on color images. FEMORAL: Normal compression and augmentation. No visualized echogenic material on huang scale. No defe cts on color images. POPLITEAL: Normal compression, augmentation. No visualized echogenic material on huang scale. No defec ts on color images. CALF VESSELS: Normal compression, augmentation. No visualized echogenic material on huang scale. No de fects on color images. GSV: Normal compression, augmentation. No visualized echogenic material on haung scale. No defects on color images. ANY DEEP VENOUS INSUFFICIENCY: Not evaluated. ANY EVIDENCE OF POPLITEAL CYST: No. OTHER: No other significant finding. CONTRALATERAL COMMON FEMORAL VEIN AND SAPHENOFEMORAL JUNCTION: Normal phasicity, compression and augmentation. No visualized echogenic material on huang scale. No de fects on color images. IMPRESSION: NO EVIDENCE OF DVT OR SVT IN THE RIGHT LEG. TECHNICAL DOCUMENTATION: JOB ID: [id number] 2010 [employer]- All Rights Reserved Reading location - IP/workstation name: [email or web address]
--- NOTE | 2019-06-13 15:01 | PDOC CRITICAL CARE PROG REPORT ---
General Date:: 06/13/19 ICU Day:: 3 Hospital Day:: 3 Resuscitation Status: Chemical Code Only - He would want to be intubated if necessary but does not want CPR or countershocks if he codes Events in the past 12 to 24 Hours:: Spiking fever still. COVID not back yet. Staph epi in urine. Unusual. Review of systems relevant to events:: Neurological, , ID Reason for ICU Addmission:: Worsening encephalopathy and agitation. - Medications: Medications reviewed and adjusted accordingly: Yes Vasopressors:: None Sedation:: Precedex Physical Exam Vital Signs: Temp Pulse Resp BP Pulse Ox 100.9 F H 114 H 19 140/95 H 100 06/13/19 12:00 06/13/19 12:00 06/13/19 12:29 06/13/19 12:29 06/13/19 12:29 Intake & Output 06/12/19 06/13/19 06/14/19 06:59 06:59 06:59 Intake Total 1800 2500 1000 Output Total 1255 1125 325 Balance 545 1375 675 Weight 91.8 kg 93.5 kg 93.5 kg Weight/Height Weight 93.5 kg Height 6 ft General appearance: PRESENT: cooperative, disheveled, thin Head exam: PRESENT: atraumatic, normocephalic Eye exam: PRESENT: conjunctiva pink, EOMI, PERRLA. ABSENT: scleral icterus Ear exam: PRESENT: normal external ear exam Mouth exam: PRESENT: dry mucosa Respiratory exam: PRESENT: clear to auscultation arnoldo. ABSENT: rales, rhonchi, wheezes Cardiovascular exam: PRESENT: tachycardia Vascular exam: PRESENT: normal capillary refill GI/Abdominal exam: PRESENT: normal bowel sounds, soft. ABSENT: distended, guarding, mass, organolmegaly, rebound, tenderness Rectal exam: PRESENT: deferred Laboratory/Radiographs Laboratory Results: 06/13/19 04:22 06/13/19 04:22 06/13/19 06/13/19 04:22 04:22 WBC 10.3 RBC 4.05 L Hgb 13.1 L Hct 37.8 L MCV 93 MCH 32.4 MCHC 34.8 RDW 13.6 Plt Count 363 Seg Neutrophils % Not Reportable Sodium 135.3 L Potassium 4.2 Chloride 104 Carbon Dioxide 16 L Anion Gap 15 BUN 19 Creatinine 1.01 Est GFR ( Amer) > 60 Glucose 124 H Calcium 9.2 Total Bilirubin 1.0 AST 71 H Alkaline Phosphatase 83 Total Protein 6.6 Albumin 3.4 L 06/10/19 17:30 Cerebral Spinal Fluid - Csf Gram Stain - Final 06/11/19 07:10 Stool - Stool - Final 06/11/19 07:10 Stool - Stool Stool Culture - Final NO SALMONELLA, SHIGELLA, CAMPYLOBACTER, OR E.COLI 0157 RECOVERED. NEGATIVE FOR SHIGA TOXINS 1&2. 06/09/19 06/09/19 06/11/19 23:25 23:25 05:05 Creatine Kinase 94 Troponin I 0.022 NT-Pro-B Natriuret Pep 1530 H Impressions: Chest CT 06/10/19 00:00 IMPRESSION: Minimal right basilar atelectasis. No other significant findings. Retroperitoneal Abscess Drainage 06/10/19 00:00 IMPRESSION: Successful ultrasound guided drainage of the right pelvic fluid collection. Samples were obtained and sent to pathology for evaluation. Head CT 06/10/19 01:27 IMPRESSION: No acute intracranial process is identified. Age-related involutional changes are identified. Presumed old small vessel ischemic changes are seen predominantly in a periventricular distribution. Chest X-Ray 06/13/19 06:00 IMPRESSION: STABLE APPEARANCE OF THE CHEST. Abdomen/Pelvis CT 06/13/19 08:00 IMPRESSION: Grossly stable right pelvic abscess with mild inflammation of the adjacent urinary bladder. Grossly stable tubular cystic structure along the lower left pelvis with no definite surrounding inflammatory changes. This may represent a lymphocele, loculated ascites or neoplasm. A superimposed infection is not excluded. TECHNICAL DOCUMENTATION: Quality ID # 436: Final reports with documentation of one or more dose reduction techniques (e.g., Automated exposure control, adjustment of the mA and/or kV according to patient size, use of iterative reconstruction technique) copyright 2011 [employer]- All Rights Reserved Assessment and Plan - Diagnosis (1) Fever Qualifiers: Fever type: unspecified Qualified Code(s): R50.9 - Fever, unspecified Is this a current diagnosis for this admission?: Yes Plan: He has staph epi X 2 in peritoneal fluid. R side tapped this AM. Culture pending. Flu neg. COVID-19 pending. He needs COVID wa7iorsi as I believe this is not of urinary source. Keep in ICU pending this. (2) Abnormal abdominal CT scan Is this a current diagnosis for this admission?: Yes Plan: This is likely of a long standing duration. No further interventions pending COVID results. (3) Encephalopathy acute Is this a current diagnosis for this admission?: Yes Plan: Likely due to fever now afebrile. (4) Hyponatremia Is this a current diagnosis for this admission?: Yes Plan: Resolved. Plan Summary: Keep in ICU pending COVID. Try to wean precedex. Critical Time Critical Time (minutes): 35 Level of Care: ICU Anticipated discharge: Home with Homehealth Within: Other -: 1. The care of a critical patient is a dynamic process. This note is a roofing sales representative synopsis but static in nature. The timeframe for treatments gi carolynn in order is not necessarily the actual time these treatments may have been done. 2. This patient requires critical care secondary to ongoing requirements for therapy not offered or safe outside the critical care environment. Transfer to a lower level of care will result in altered life or limb morbidity and mortality. 3. Multidisciplinary rounds completed. 4. ABCDE bundle addressed.
--- NOTE | 2019-06-13 15:45 | RADIOLOGY REPORT (SQ) ---
EXAM DESCRIPTION: U/S FLUID DRAINAGE WITH CATH IMAGES COMPLETED DATE/TIME: 06/13/2019 2:12 pm REASON FOR STUDY: Staph epi X 2 now with R large collection. COMPARISON: CT abdomen pelvis 06/13/2019 RADIATION DOSE: None LIMITATIONS: None. PROCEDURE: Procedure, risks, benefit, and alternative explained to patient's who then gave cons ent. The procedure was performed at bedside due to patient's isolation status. Ultrasound of the lo wer abdomen was used to identify a fluid collection in the right lower abdomen. The right lower abdo namita wall marked using ultrasound guidance. A time-out was called for correct marking verification. Abdomen prepped and draped using sterile technique. Local anesthesia achieved using 10 ml of 1% lid ocaine injection. A 5fr needle/cath set was introduced into the peritoneal cavity. A 0.35 guidewire was advanced into the fluid collection. An 8 [place] all-purpose drainage catheter was placed over th e wire and the wire removed. The drainage catheter was secured sterilely. 20 mL of fluid was draine d and sent to lab for analysis. No immediate complications noted. Images acquired during the procedure were stored on PACS. FINDINGS: ENTRY SITE: Right lower mid abdomen. FLUID VOLUME: 20 mL of fluid was sent to the lab for analysis. FLUID ANALYSIS: Cloudy yellow colored fluid IMPRESSION: SUCCESSFUL PLACEMENT OF AN 8 DANISH ALL-PURPOSE DRAINAGE CATHETER INTO THE RIGHT LOWER Q UADRANT FLUID COLLECTION. COMMENT: Patient medication list reviewed:Yes- Quality ID# [id number]:Eligible professional attests to docu menting in the medical record they obtained, updated, or reviewed the patient's current medications. TECHNICAL DOCUMENTATION: JOB ID: [id number] [employer]- All Rights Reserved Reading location - IP/workstation name: [email or web address] [id number]
--- NOTE | 2019-06-13 16:19 | Progress Note ---
Provider Note Provider Note: I spoke with Dr. Manuelito Larson, his primary, who did shed some light on his condition. 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 Will start this. 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 CT negative. May need bone scan. Also consider infectious such as CIVID, still pending. Manuelito Castellon MD [phone].
[2019-06-13] MEDS ORDERED: THIAMINE HCL INJ 200 MG/2 ML VIAL IM SCH (16:30)
--- NOTE | 2019-06-13 17:01 | XCELERA REPORT ---
[address] [address] Transthoracic Echocardiogram Report Name: ANGEL CLARK Age: 69 yrs Gender: Male : 1950 Patient Status: Inpatient Patient Location: ICU^602^A Study Date: 06/13/2019 10:34 AM Height: 72 in Weight: 202 lb BSA: 2.1 m2 Procedure: A complete two-dimensional transthoracic echocardiogram was performed (2D, M-mode, spectral and color flow Doppler). The study was technically limited with all images being suboptimal in quality. Study Quality: Poor. Images from the parasternal window were difficult to obtain and are suboptimal in quality. The apical views were difficult to obtain and are suboptimal in quality. Reason For Study: r/o endocarditis Ordering Physician: JUAN MIGUEL SALCEDO Performed By: Zaire Sanchez Interpretation Summary Overall poor quality study that is non-diagnostic Very limited endocardial visibility and some of this comment based on M-mode is that the patient has hyperdynamic LV function >75%. Otherwise valves are not well visualized in this exam. MMode/2D Measurements & Calculations RVDd: 3.3 cm LVIDd: 5.3 cm FS: 44.8 % Ao root diam: 3.5 cm IVSd: 1.0 cm LVIDs: 2.9 cm EDV(Teich): 133.9 ml Ao root area: 9.8 cm2 LVPWd: 0.86 cm ESV(Teich): 32.5 ml LA dimension: 4.1 cm EF(Teich): 75.8 % Doppler Measurements & Calculations MV E max latosha: MV P1/2t max latosha: Ao V2 max: LV V1 max P.4 cm/sec 82.0 cm/sec 143.3 cm/sec 6.5 mmHg MV A max latosha: MV P1/2t: 49.7 msec Ao max PG: LV V1 max: 126.1 cm/sec MVA(P1/2t): 4.4 cm2 8.2 mmHg 127.8 cm/sec MV E/A: 0.66 MV dec slope: 483.0 cm/sec2 MV dec time: 0.16 sec PA V2 max: MV P1/2t-pr_phl: 124.5 cm/sec 49.7 msec PA max P.2 mmHg Left Ventricle The left ventricle is hyperdynamic. pt tachycardic with E/A fusion. Regional wall motion abnormalities cannot be excluded due to limited visualization. Right Ventricle not well visualized. Atria not well visualized. not well visualized. not well visualized. Mitral Valve There is mild mitral annular calcification. There is no mitral valve stenosis. Evaluation of regurgitation is inadequate. Aortic Valve The aortic valve is not well visualized secondary to technical limitations. appears trileaflet. There is no aortic valve stenosis. No aortic regurgitation is present. Tricuspid Valve The tricuspid valve is not well visualized secondary to technical limitations. There is no tricuspid stenosis. No tricuspid regurgitation. Pulmonic Valve The pulmonic valve is not well visualized. Great Vessels The aortic root is not well visualized. The inferior vena cava appeared normal and decreased > 50% with respiration (RAP 5-10 mmHg). Effusions There is no pericardial effusion. : JUAN MIGUEL SALCEDO Seth J
[2019-06-13] MEDS ORDERED: DEXTROSE 5%-WATER 250 ML with NOREPINEPHRINE BITARTRATE 4 MG IV PRN ×2 (20:19)
[2019-06-13] MEDS ORDERED: (PENDING PHARMACY ID) (Simvastatin [Simvastatin] 20 MG) PO SCH (22:00)
[2019-06-13] MEDS: VANCOMYCIN HCL 1,000 MG in DEXTROSE 5%-WATER 250 ML IV SCH (22:14)
[2019-06-13] MEDS: SIMVASTATIN 10 MG TABLET PO SCH (22:15)
[2019-06-14 05:33] LABS: ABSOLUTE EOSINOPHILS # (AUTO) 0.1 10^3/uL (0.0-0.6); ABSOLUTE LYMPHOCYTES (AUTO) 0.5 10^3/uL (0.5-4.7); ABSOLUTE MONOCYTES (AUTO) 0.8 10^3/uL (0.1-1.4); ABSOLUTE NEUT (AUTO) 5.4 10^3/uL (1.7-8.2); BASOPHILS % (AUTO) 0.7 % (0-2); EOSINOPHILS % (AUTO) 1.1 % (0-6); HEMATOCRIT 32.8 % (37.9-51.0); HEMOGLOBIN 11.6 g/dL (13.5-17.0); LYMPHOCYTES % (AUTO) 7.9 % (13-45); MEAN CORPUSCULAR HEMOGLOBIN 32.5 pg (27.0-33.4); MEAN CORPUSCULAR HGB CONC 35.2 g/dL (32.0-36.0); MEAN CORPUSCULAR VOLUME 92 fl (80-97); MONOCYTES % (AUTO) 11.7 % (3-13); PLATELET COUNT 348 10^3/uL (150-450); RED BLOOD COUNT 3.55 10^6/uL (4.35-5.55); RED CELL DISTRIBUTION WIDTH 13.7 % (11.5-14.0); SEGMENTED NEUTROPHILS % (AUTO) 78.6 % (42-78); TOTAL CELLS COUNTED % (AUTO) 100 %; WHITE BLOOD COUNT 6.8 10^3/uL (4.0-10.5)
[2019-06-14 05:50] LABS: ANION GAP 9 (5-19); BLOOD UREA NITROGEN 18 mg/dL (7-20); CALCIUM 8.6 mg/dL (8.4-10.2); CARBON DIOXIDE 19 mmol/L (22-30); CHLORIDE 110 mmol/L (98-107); GLUCOSE 155 mg/dL (75-110); PHOSPHORUS 3.2 mg/dL (2.5-4.5); POTASSIUM 3.4 mmol/L (3.6-5.0)
[2019-06-14] MEDS ORDERED: HALOPERIDOL LACTATE INJ 5 MG/1 ML VIAL IV PRN ×2 (06:53→07:20)
[2019-06-14] MEDS ORDERED: QUETIAPINE FUMARATE 25 MG TABLET NG ONE (08:00)
[2019-06-14] MEDS ORDERED: POTASSIUM PHOS,M-BASIC-D-BASIC 30 MMOL in DEXTROSE 5%-WATER 250 ML IV ONE (08:00)
[2019-06-14] MEDS: VANCOMYCIN HCL 1,000 MG in DEXTROSE 5%-WATER 250 ML IV SCH ×2 (09:07→22:12)
[2019-06-14] MEDS: FAMOTIDINE INJ/PF 20 MG/2 ML SDV IV SCH ×2 (09:58→22:13)
[2019-06-14] MEDS: LOSARTAN POTASSIUM 50 MG TABLET PO SCH (09:59)
[2019-06-14] MEDS: ENOXAPARIN SODIUM INJ 40 MG/0.4 ML DISP.SYRIN SUBCUT SCH (09:59)
[2019-06-14] MEDS: DOCUSATE SODIUM 100 MG CAPSULE PO SCH (09:59)
[2019-06-14] MEDS: METOPROLOL TARTRATE 50 MG TABLET PO SCH ×2 (10:00→22:12)
[2019-06-14] MEDS: OXYCODONE-ACETAMINOPHEN 5-325 MG TABLET PO PRN ×2 (10:00→22:13)
[2019-06-14] MEDS: THIAMINE HCL INJ 200 MG/2 ML VIAL IM SCH (10:08)
--- NOTE | 2019-06-14 10:10 | PDOC CRITICAL CARE PROG REPORT ---
General Date:: 06/14/19 ICU Day:: 4 Hospital Day:: 5 Resuscitation Status: Chemical Code Only - He would want to be intubated if necessary but does not want CPR or countershocks if he codes Events in the past 12 to 24 Hours:: More oriented. Review of systems relevant to events:: Neurological Reason for ICU Addmission:: Worsening encephalopathy and agitation. Now improved. - Medications: Medications reviewed and adjusted accordingly: Yes Vasopressors:: None Sedation:: None, precedex stopped. Physical Exam Vital Signs: Temp Pulse Resp BP Pulse Ox 98.8 F 69 21 H 138/80 H 100 06/14/19 08:00 06/14/19 08:00 06/14/19 08:00 06/14/19 08:00 06/14/19 08:00 Intake & Output 06/13/19 06/14/19 06/15/19 06:59 06:59 06:59 Intake Total 2500 2350 95 Output Total 1125 1792 225 Balance 1375 558 -130 Weight 93.5 kg 94.2 kg Weight/Height Weight 94.2 kg Height 6 ft General appearance: PRESENT: no acute distress, thin Head exam: PRESENT: atraumatic, normocephalic Eye exam: PRESENT: conjunctiva pink, EOMI, PERRLA. ABSENT: scleral icterus Ear exam: PRESENT: normal external ear exam Mouth exam: PRESENT: dry mucosa Respiratory exam: PRESENT: clear to auscultation arnoldo, decreased breath sounds. ABSENT: rales, rhonchi, wheezes Cardiovascular exam: PRESENT: RRR. ABSENT: diastolic murmur, rubs, systolic murmur Vascular exam: PRESENT: normal capillary refill GI/Abdominal exam: PRESENT: normal bowel sounds, soft. ABSENT: distended, guarding, mass, organolmegaly, rebound, tenderness Rectal exam: PRESENT: deferred Extremities exam: PRESENT: full ROM. ABSENT: calf tenderness, clubbing, pedal edema Neurological exam: PRESENT: altered, awake, oriented to person, CN II-XII grossly intact Psychiatric exam: PRESENT: appropriate affect, normal mood. ABSENT: homicidal ideation, suicidal ideation Skin exam: PRESENT: dry, intact, warm. ABSENT: cyanosis, rash Laboratory/Radiographs Laboratory Results: 06/14/19 05:20 06/14/19 05:20 06/14/19 06/14/1920 05:20 05:20 05:20 WBC 6.8 RBC 3.55 L Hgb 11.6 L Hct 32.8 L MCV 92 MCH 32.5 MCHC 35.2 RDW 13.7 Plt Count 348 Seg Neutrophils % 78.6 H Sodium 137.8 Potassium 3.4 L Chloride 110 H Carbon Dioxide 19 L Anion Gap 9 BUN 18 Creatinine 0.84 Est GFR ( Amer) > 60 Glucose 155 H Calcium 8.6 Phosphorus 3.2 Magnesium 2.3 06/10/19 14:50 Abdominal Fluid Gram Stain - Final 06/10/19 14:50 Abdominal Fluid Body Fluid Culture - Final Staphylococcus Epidermidis No Anaerobic Organisms 06/10/19 17:30 Cerebral Spinal Fluid - Csf Gram Stain - Final 06/10/19 17:30 Cerebral Spinal Fluid - Csf CSF Culture - Final NO GROWTH 3 DAYS 06/11/19 07:10 Stool - Stool - Final 06/11/19 07:10 Stool - Stool Stool Culture - Final NO SALMONELLA, SHIGELLA, CAMPYLOBACTER, OR E.COLI 0157 RECOVERED. NEGATIVE FOR SHIGA TOXINS 1&2. 06/09/19 06/09/19 06/11/19 23:25 23:25 05:05 Creatine Kinase 94 Troponin I 0.022 NT-Pro-B Natriuret Pep 1530 H Impressions: Chest CT 06/10/19 00:00 IMPRESSION: Minimal right basilar atelectasis. No other significant findings. Retroperitoneal Abscess Drainage 06/10/19 00:00 IMPRESSION: Successful ultrasound guided drainage of the right pelvic fluid collection. Samples were obtained and sent to pathology for evaluation. Head CT 06/10/19 01:27 IMPRESSION: No acute intracranial process is identified. Age-related involutional changes are identified. Presumed old small vessel ischemic changes are seen predominantly in a periventricular distribution. Fluid Drainage 06/13/19 00:00 IMPRESSION: SUCCESSFUL PLACEMENT OF AN 8 [employer] ALL-PURPOSE DRAINAGE CATHETER INTO THE RIGHT LOWER QUADRANT FLUID COLLECTION. Chest X-Ray 06/13/19 06:00 IMPRESSION: STABLE APPEARANCE OF THE CHEST. Abdomen/Pelvis CT 06/13/19 08:00 IMPRESSION: Grossly stable right pelvic abscess with mild inflammation of the adjacent urinary bladder. Grossly stable tubular cystic structure along the lower left pelvis with no definite surrounding inflammatory changes. This may represent a lymphocele, loculated ascites or neoplasm. A superimposed infection is not excluded. TECHNICAL DOCUMENTATION: Quality ID # 436: Final reports with documentation of one or more dose reduction techniques (e.g., Automated exposure control, adjustment of the mA and/or kV according to patient size, use of iterative reconstruction technique) copyright 2011 [employer]- All Rights Reserved Venous Doppler Study 06/13/19 08:00 IMPRESSION: NO EVIDENCE OF DVT OR SVT IN THE RIGHT LEG. All labs, radiographs, diagnostic studies and EKGs were personally reviewed: Yes In addition, reports of radiographic and diagnostic studies were read: Yes Assessment and Plan - Diagnosis (1) Fever Qualifiers: Fever type: unspecified Qualified Code(s): R50.9 - Fever, unspecified Is this a current diagnosis for this admission?: Yes Plan: So far only staph epi in lymphocele. Doubt COVID. Talked with Dr. Castellon yesterday. Pt has been through rather unusual ETOH WD before manifested by fever, rigors and encephalopathy treated with thiamine for a week which he is now on and starting to improve. Precedex off and plan to downgrade to [facility]. (2) Abnormal abdominal CT scan Is this a current diagnosis for this admission?: Yes Plan: Lymphceles drained. (3) Encephalopathy acute Is this a current diagnosis for this admission?: Yes Plan: Slight improvement. Not agitated. (4) Hyponatremia Is this a current diagnosis for this admission?: Yes Plan: Resolved. Plan Summary: Patient may do fine on medical floor but given past agitation will transfer at least for now to [facility]. Critical Time Critical Time (minutes): 30 Level of Care: IMCU Anticipated discharge: Acute Rehab Within: Other -: 1. The care of a critical patient is a dynamic process. This note is a commercial pest control representative synopsis but static in nature. The timeframe for treatments given in order is not necessarily the actual time these treatments may have been done. 2. This patient requires critical care secondary to ongoing requirements for therapy not offered or safe outside the critical care environment. Transfer to a lower level of care will result in altered life or limb morbidity and mortality. 3. Multidisciplinary rounds completed. 4. ABCDE bundle addressed.
[2019-06-14] MEDS ORDERED: POTASSI CL 20 MEQ/50 ML RIDER 20 MEQ/50 ML RTUPB IV SCH (11:00)
[2019-06-14] MEDS: POTASSI CL 20 MEQ/D5-1/2NS 1L 1,000 ML IV PRN ×2 (15:00→18:06)
--- NOTE | 2019-06-14 17:26 | Progress Note ---
Provider Note Provider Note: i received signout from garment sewer hand. 69 year old male with a past medical history significant for hypertension, macy te prostate cancer, and arthritis who presented to the emergency department last night with a complaint of 1 week of progressively worsening generalized weakness, severe fatigue, and rigors. Upon arrival to the emergency department, he developed shortness of breath with hypoxia (70%) on room air and diarrhea. Was on a cruise recently to [place]. Tested for COVID 19 for which results are still pending. Patient was initially being admitted to the hospitalist service when he developed significant hypoxia and was immediately transferred from the ER directly to the ICU. Abdominal CT revealed multiple parapelvic masses which were later drained. According to the garment sewer hand, it was believed to be a lymphocele. However cultures growing gram-positive cocci from fluid. Currently on vancomycin. Patient was suspected and treated for alcohol withdrawal in the ICU which was believed to be the cause of patient's fever, anxiety and rigors. CT scan of the chest just showed some atelectasis. No clear etiology for patient's hypoxia was discovered but patient does seem to be maintaining adequate saturations on room air at this time. Lumbar puncture was also done to evaluate patient's fevers which was negative. Blood parasite screen was negative. Stool parasite result pending. Current management is focused around alcohol withdrawal. Vital signs are within normal limits. Patient is evidently confused. Disoriented to place but oriented to person and year. Disoriented to situation. A/P Infected lymphocele - S/P drainage. Follow-up fluid culture. Hypoxia-resolved Acute metabolic encephalopathy-informed by garment sewer hand that this was suspected to be due to alcohol withdrawal. Lumbar puncture seems negative for infection or any significant inflammatory process. CIWA protocol. Ativan as needed. Monitor mental status. Suspected COVID19 infection -test result pending.
[2019-06-14] MEDS: SIMVASTATIN 10 MG TABLET PO SCH (22:11)
[2019-06-15] MEDS: OXYCODONE-ACETAMINOPHEN 5-325 MG TABLET PO PRN (04:58)
[2019-06-15 06:21] LABS: ANION GAP 8 (5-19); BLOOD UREA NITROGEN 18 mg/dL (7-20); CALCIUM 8.6 mg/dL (8.4-10.2); CARBON DIOXIDE 20 mmol/L (22-30); CHLORIDE 108 mmol/L (98-107); GLUCOSE 118 mg/dL (75-110); POTASSIUM 3.4 mmol/L (3.6-5.0)
[2019-06-15] MEDS: POTASSI CL 20 MEQ/D5-1/2NS 1L 1,000 ML IV PRN (07:45)
[2019-06-15] MEDS: LOSARTAN POTASSIUM 50 MG TABLET PO SCH (09:45)
[2019-06-15] MEDS: METOPROLOL TARTRATE 50 MG TABLET PO SCH ×2 (09:45→21:39)
[2019-06-15] MEDS: DOCUSATE SODIUM 100 MG CAPSULE PO SCH (09:45)
[2019-06-15] MEDS: FAMOTIDINE INJ/PF 20 MG/2 ML SDV IV SCH ×2 (09:46→21:40)
[2019-06-15] MEDS: ENOXAPARIN SODIUM INJ 40 MG/0.4 ML DISP.SYRIN SUBCUT SCH (10:07)
[2019-06-15] MEDS: THIAMINE HCL INJ 200 MG/2 ML VIAL IM SCH (10:07)
--- NOTE | 2019-06-15 10:34 | PDOC PROGRESS REPORT ---
Subjective Progress Note for:: 06/15/19 Subjective:: The patient still had a positive fluid culture from 2 days ago. Patient is afebrile with normal white blood cell count. Bacteria isolated from the fluid is staph epidermidis. Reason For Visit: RESPIRATORY DISTRESS Physical Exam Vital Signs: Temp Pulse Resp BP Pulse Ox 97.8 F 82 16 143/89 H 97 06/15/19 08:47 06/15/19 08:47 06/15/19 08:47 06/15/19 08:47 06/15/19 08:47 Intake & Output 06/14/19 06/15/19 06/16/19 06:59 06:59 06:59 Intake Total 2350 1555 Output Total 1792 1876 Balance 558 -321 Weight 94.2 kg 92.7 kg General appearance: PRESENT: no acute distress, cooperative, well-developed Head exam: PRESENT: atraumatic, normocephalic Ear exam: PRESENT: normal external ear exam. ABSENT: bleeding, drainage Mouth exam: PRESENT: moist, tongue midline Respiratory exam: PRESENT: clear to auscultation arnoldo, symmetrical, unlabored. ABSENT: accessory muscle use, prolonged expiratory phas, rales, rhonchi, tachypnea Cardiovascular exam: PRESENT: RRR, +S1, +S2 GI/Abdominal exam: PRESENT: normal bowel sounds, soft. ABSENT: distended, guarding, tenderness Rectal exam: PRESENT: deferred Gentrourinary exam: PRESENT: indwelling catheter Musculoskeletal exam: PRESENT: other - Extremely weak. Help transfer to bedside commode. Neurological exam: PRESENT: alert, awake, oriented to person, oriented to place, oriented to time, oriented to situation, CN II-XII grossly intact Psychiatric exam: PRESENT: appropriate affect. ABSENT: agitated, anxious Focused psych exam: ABSENT: delusional, restlessness Results Laboratory Results: 06/14/19 05:20 06/15/19 05:49 06/15/19 05:49 Sodium 136.2 L Potassium 3.4 L Chloride 108 H Carbon Dioxide 20 L Anion Gap 8 BUN 18 Creatinine 0.94 Est GFR ( Amer) > 60 Glucose 118 H Calcium 8.6 06/09/19 23:25 Blood Blood Culture - Final NO GROWTH IN 5 DAYS 06/09/19 23:53 Blood Blood Culture - Final NO GROWTH IN 5 DAYS 06/10/19 14:50 Abdominal Fluid Gram Stain - Final 06/10/19 14:50 Abdominal Fluid Body Fluid Culture - Final Staphylococcus Epidermidis No Anaerobic Organisms 06/10/19 17:30 Cerebral Spinal Fluid - Csf Gram Stain - Final 06/10/19 17:30 Cerebral Spinal Fluid - Csf CSF Culture - Final NO GROWTH 3 DAYS 06/09/19 06/09/19 06/11/19 23:25 23:25 05:05 Creatine Kinase 94 Troponin I 0.022 NT-Pro-B Natriuret Pep 1530 H Impressions: Chest CT 06/10/19 00:00 IMPRESSION: Minimal right basilar atelectasis. No other significant findings. Retroperitoneal Abscess Drainage 06/10/19 00:00 IMPRESSION: Successful ultrasound guided drainage of the right pelvic fluid collection. Samples were obtained and sent to pathology for evaluation. Head CT 06/10/19 01:27 IMPRESSION: No acute intracranial process is identified. Age-related involutional changes are identified. Presumed old small vessel ischemic changes are seen predominantly in a periventricular distribution. Fluid Drainage 06/13/19 00:00 IMPRESSION: SUCCESSFUL PLACEMENT OF AN 8 [employer] ALL-PURPOSE DRAINAGE CATHETER INTO THE RIGHT LOWER QUADRANT FLUID COLLECTION. Chest X-Ray 06/13/19 06:00 IMPRESSION: STABLE APPEARANCE OF THE CHEST. Abdomen/Pelvis CT 06/13/19 08:00 IMPRESSION: Grossly stable right pelvic abscess with mild inflammation of the adjacent urinary bladder. Grossly stable tubular cystic structure along the lower left pelvis with no definite surrounding inflammatory changes. This may represent a lymphocele, loculated ascites or neoplasm. A superimposed infection is not excluded. TECHNICAL DOCUMENTATION: Quality ID # 436: Final reports with documentation of one or more dose reduction techniques (e.g., Automated exposure control, adjustment of the mA and/or kV according to patient size, use of iterative reconstruction technique) copyright 2011 [employer]- All Rights Reserved Venous Doppler Study 06/13/19 08:00 IMPRESSION: NO EVIDENCE OF DVT OR SVT IN THE RIGHT LEG. Assessment and Plan - Diagnosis (1) Fever Qualifiers: Fever type: due to other condition Qualified Code(s): R50.81 - Fever presenting with conditions classified elsewhere Is this a current diagnosis for this admission?: Yes Plan: June 15, 2019 The patient had what appeared to be an abscess in the right pelvis. A pigtail catheter was placed. Fluid tested positive for staph epidermidis initially and then on a consecutive sample. The abscess is most likely the cause of the fever. It was noted in the previous progress notes that the patient has exhibited a pattern of fever when he has gone through alcohol withdrawal in the past. He was drinking heavily on his cruise and this could also be 1 of the causes. (2) Lymphocele Is this a current diagnosis for this admission?: Yes Plan: June 15, 2019 The patient had a prostatectomy in August. There was aggressive lymph node dissection. There is a fluid collection on the left pelvis that looks somewhat different than on the right. There does not appear to be a ring enhancement. This may be a lymphocele without infection. (3) Pelvic abscess in male Is this a current diagnosis for this admission?: Yes Plan: June 15, 2019 As noted above the fluid collection in the right pelvis, based on cultures and imaging was likely an abscess. There is still significant drainage and therefore the drain will remain in place at this time. (4) Abnormal abdominal CT scan Is this a current diagnosis for this admission?: Yes Plan: 06/15/[address] revealed 2 fluid collections. (5) Encephalopathy acute Is this a current diagnosis for this admission?: Yes Plan: June 15, 2019 Difficult to know if this was related to infection or alcohol withdrawal. It was most likely the alcohol withdrawal. His acute encephalopathy has resolved. (6) Hyponatremia Is this a current diagnosis for this admission?: Yes Plan: June 15, 2019 On admission his serum sodium was 127. At this time he hovers around the lower limit normal. This may very well be his baseline. Please see the beauty consultant notes for etiology of the hyponatremia on admission. (7) Alcohol dependence Qualifiers: Substance use status: in withdrawal Complication of substance-induced cond ition: with unspecified complication Qualified Code(s): F10.239 - Alcohol dependence with withdrawal, unspecified Is this a current diagnosis for this admission?: Yes Plan: June 15, 2019 As noted above it appears that the patient was going through alcohol withdrawal on admission to the intensive care unit. This has resolved. (8) Obs/eval susp exp biolog agent Is this a current diagnosis for this admission?: Yes Plan: June 15, 2019 The patient was tested for Covid-19. The results are still pending. (9) Staphylococcus epidermidis infection Is this a current diagnosis for this admission?: Yes Plan: June 15, 2019 The fluid from the right pelvic abscess was consistently positive for staph epidermidis. The patient is currently on vancomycin. - Time Time Spent with patient: 15-24 minutes
[2019-06-15] MEDS: VANCOMYCIN HCL 1,000 MG in DEXTROSE 5%-WATER 250 ML IV SCH ×2 (10:40→21:40)
[2019-06-15 11:08] LABS: VANCOMYCIN,TROUGH 13.3 ug/mL (5.0-20.0)
[2019-06-15] MEDS ORDERED: POTASSI CL 20 MEQ/50 ML RIDER 20 MEQ/50 ML RTUPB IV ONE (11:30)
[2019-06-15] MEDS: POTASSIUM CHLORIDE 10 MEQ TABLET.ER PO SCH (12:16)
[2019-06-15] MEDS: SIMVASTATIN 10 MG TABLET PO SCH (21:39)
[2019-06-16 06:04] LABS: ANION GAP 12 (5-19); BLOOD UREA NITROGEN 15 mg/dL (7-20); CALCIUM 9.5 mg/dL (8.4-10.2); CARBON DIOXIDE 21 mmol/L (22-30); CHLORIDE 104 mmol/L (98-107); GLUCOSE 109 mg/dL (75-110); POTASSIUM 4.3 mmol/L (3.6-5.0)
[2019-06-16 07:01] LABS: PROSTATE SPECIFIC ANTIGEN <0.1 ng/mL (0.0-4.0); PSA FREE <0.02 ng/mL
[2019-06-16] MEDS: VANCOMYCIN HCL 1,000 MG in DEXTROSE 5%-WATER 250 ML IV SCH ×2 (09:32→21:19)
[2019-06-16] MEDS: ENOXAPARIN SODIUM INJ 40 MG/0.4 ML DISP.SYRIN SUBCUT SCH (09:33)
[2019-06-16] MEDS: METOPROLOL TARTRATE 50 MG TABLET PO SCH ×2 (09:33→21:21)
[2019-06-16] MEDS: FAMOTIDINE INJ/PF 20 MG/2 ML SDV IV SCH ×2 (09:33→21:21)
[2019-06-16] MEDS: DOCUSATE SODIUM 100 MG CAPSULE PO SCH (09:33)
[2019-06-16] MEDS: LOSARTAN POTASSIUM 50 MG TABLET PO SCH (09:33)
[2019-06-16] MEDS: POTASSIUM CHLORIDE 10 MEQ TABLET.ER PO SCH (09:33)
[2019-06-16] MEDS: THIAMINE HCL INJ 200 MG/2 ML VIAL IM SCH (09:35)
--- NOTE | 2019-06-16 17:01 | PDOC PROGRESS REPORT ---
Subjective Progress Note for:: 06/16/19 Subjective:: The patient was extremely weak yesterday. I did have physical therapy assess the patient. He may benefit from rehab. The pelvic abscess drain had 500 mL from Thursday and 275 mL from yesterday. There is 100 mL in the bag already this afternoon. The patient has no new complaints today. Reason For Visit: RESPIRATORY DISTRESS Physical Exam Vital Signs: Temp Pulse Resp BP Pulse Ox 98.8 F 77 16 157/90 H 99 06/16/19 08:07 06/16/19 14:00 06/16/19 08:07 06/16/19 08:07 06/16/19 08:07 Intake & Output 06/15/19 06/16/19 06/17/19 06:59 06:59 06:59 Intake Total 1555 2481 250 Output Total 1876 1425 Balance -321 1056 250 Weight 92.7 kg 92.7 kg General appearance: PRESENT: no acute distress, cooperative, well-developed Head exam: PRESENT: atraumatic, normocephalic Respiratory exam: PRESENT: clear to auscultation arnoldo, symmetrical, unlabored. ABSENT: accessory muscle use, prolonged expiratory phas, rales, rhonchi, tachypnea, wheezes Cardiovascular exam: PRESENT: RRR, +S1, +S2 GI/Abdominal exam: PRESENT: normal bowel sounds, soft, other - Pigtail catheter drain on the right. ABSENT: distended, tenderness Rectal exam: PRESENT: deferred Musculoskeletal exam: PRESENT: normal inspection Neurological exam: PRESENT: alert, awake, oriented to person, oriented to place, oriented to time, oriented to situation, CN II-XII grossly intact. ABSENT: altered Psychiatric exam: PRESENT: flat affect. ABSENT: agitated, anxious Focused psych exam: ABSENT: delusional, restlessness Skin exam: PRESENT: dry, normal color, warm. ABSENT: rash Results Laboratory Results: 06/14/19 05:20 06/16/19 05:14 06/15/19 06/16/19 10:23 05:14 Sodium 136.9 L Potassium 4.3 Chloride 104 Carbon Dioxide 21 L Anion Gap 12 BUN 15 Creatinine 0.94 Est GFR ( Amer) > 60 Glucose 109 Calcium 9.5 Magnesium 2.1 Prostate Specific Ag <0.1 Free PSA <0.02 % Free PSA TNP 06/13/19 13:10 Abdominal Fluid Gram Stain - Final 06/13/19 13:10 Abdominal Fluid Body Fluid Culture - Final Staphylococcus Epidermidis No Anaerobic Organisms 06/09/19 06/09/19 06/11/19 23:25 23:25 05:05 Creatine Kinase 94 Troponin I 0.022 NT-Pro-B Natriuret Pep 1530 H Impressions: Chest CT 06/10/19 00:00 IMPRESSION: Minimal right basilar atelectasis. No other significant findings. Retroperitoneal Abscess Drainage 06/10/19 00:00 IMPRESSION: Successful ultrasound guided drainage of the right pelvic fluid collection. Samples were obtained and sent to pathology for evaluation. Head CT 06/10/19 01:27 IMPRESSION: No acute intracranial process is identified. Age-related involutional changes are identified. Presumed old small vessel ischemic changes are seen predominantly in a periventricular distribution. Fluid Drainage 06/13/19 00:00 IMPRESSION: SUCCESSFUL PLACEMENT OF AN 8 [employer] ALL-PURPOSE DRAINAGE CATHETER INTO THE RIGHT LOWER QUADRANT FLUID COLLECTION. Chest X-Ray 06/13/19 06:00 IMPRESSION: STABLE APPEARANCE OF THE CHEST. Abdomen/Pelvis CT 06/13/19 08:00 IMPRESSION: Grossly stable right pelvic abscess with mild inflammation of the adjacent urinary bladder. Grossly stable tubular cystic structure along the lower left pelvis with no definite surrounding inflammatory changes. This may represent a lymphocele, loculated ascites or neoplasm. A superimposed infection is not excluded. TECHNICAL DOCUMENTATION: Quality ID # 436: Final reports with documentation of one or more dose reduction techniques (e.g., Automated exposure control, adjustment of the mA and/or kV according to patient size, use of iterative reconstruction technique) copyright 2011 [employer]- All Rights Reserved Venous Doppler Study 06/13/19 08:00 IMPRESSION: NO EVIDENCE OF DVT OR SVT IN THE RIGHT LEG. Assessment and Plan - Diagnosis (1) Fever Qualifiers: Fever type: due to other condition Qualified Code(s): R50.81 - Fever presenting with conditions classified elsewhere Is this a current diagnosis for this admission?: Yes Plan: June 15, 2019 The patient had what appeared to be an abscess in the right pelvis. A pigtail catheter was placed. Fluid tested positive for staph epidermidis initially and then on a consecutive sample. The abscess is most likely the cause of the fever. It was noted in the previous progress notes that the patient has exhibited a pattern of fever when he has gone through alcohol withdrawal in the past. He was drinking heavily on his cruise and this could also be 1 of the causes. June 16, 2019 Afebrile today (2) Lymphocele Is this a current diagnosis for this admission?: Yes Plan: June 15, 2019 The patient had a prostatectomy in August. There was aggressive lymph node dissection. There is a fluid collection on the left pelvis that looks somewhat different than on the right. There does not appear to be a ring enhancement. This may be a lymphocele without infection. June 16, [address] a drain at this time. Will defer to the patient's urologist who he will need to see after discharge. (3) Pelvic abscess in male Is this a current diagnosis for this admission?: Yes Plan: June 15, 2019 As noted above the fluid collection in the right pelvis, based on cultures and imaging was likely an abscess. There is still significant drainage and therefore the drain will remain in place at this time. June 16, 2019 Continue antibiotic therapy until completion. As long as there is significant fluid output we will leave the drain in place. I did call the [place] [facility]. After several voicemails I decided I would try to reach Dr. Miah Villaseñor, the patient's oncologist, tomorrow. (4) Abnormal abdominal CT scan Is this a current diagnosis for this admission?: Yes Plan: 06/15/[address] revealed 2 fluid collections. (5) Encephalopathy acute Is this a current diagnosis for this admission?: Yes Plan: June 15, 2019 Difficult to know if this was related to infection or alcohol withdrawal. It was most likely the alcohol withdrawal. His acute encephalopathy has resolved. (6) Hyponatremia Is this a current diagnosis for this admission?: Yes Plan: June 15, 2019 On admission his serum sodium was 127. At this time he hovers around the lower limit normal. This may very well be his baseline. Please see the vice president commercial bank notes for etiology of the hyponatremia on admission. June 16, 2019 Serum sodium is 136.9 today. Lower limit normal is 137. We will continue to monitor with serial labs. (7) Alcohol dependence Qualifiers: Substance use status: in withdrawal Complication of substance-induced condition: with unspecified complication Qualified Code(s): F10.239 - Alcohol dependence with withdrawal, unspecified Is this a current diagnosis for this admission?: Yes Plan: June 15, 2019 As noted above it appears that the patient was going through alcohol withdrawal on admission to the intensive care unit. This has resolved. June 16, 2019 No further evidence of withdrawal at this time. Will encourage alcohol cessat ion after discharge. (8) Staphylococcus epidermidis infection Is this a current diagnosis for this admission?: Yes Plan: June 15, 2019 The fluid from the right pelvic abscess was consistently positive for staph epidermidis. The patient is currently on vancomycin. June 16, 2019 Continue vancomycin (9) Obs/eval susp exp biolog agent Is this a current diagnosis for this admission?: Yes Plan: June 15, 2019 The patient was tested for Covid-19. The results are still pending. June 16, 2019 Results still pending - Time Time Spent with patient: 15-24 minutes Medications reviewed and adjusted accordingly: Yes
[2019-06-16] MEDS: SIMVASTATIN 10 MG TABLET PO SCH (21:21)
[2019-06-17] MEDS: DOCUSATE SODIUM 100 MG CAPSULE PO SCH (09:43)
[2019-06-17] MEDS: LOSARTAN POTASSIUM 50 MG TABLET PO SCH (09:44)
[2019-06-17] MEDS: METOPROLOL TARTRATE 50 MG TABLET PO SCH ×2 (09:44→21:31)
[2019-06-17] MEDS: POTASSIUM CHLORIDE 10 MEQ TABLET.ER PO SCH (09:44)
[2019-06-17] MEDS: ENOXAPARIN SODIUM INJ 40 MG/0.4 ML DISP.SYRIN SUBCUT SCH (09:44)
[2019-06-17] MEDS: VANCOMYCIN HCL 1,000 MG in DEXTROSE 5%-WATER 250 ML IV SCH ×2 (09:45→21:33)
[2019-06-17] MEDS: FAMOTIDINE INJ/PF 20 MG/2 ML SDV IV SCH ×2 (09:45→21:32)
[2019-06-17] MEDS: THIAMINE HCL INJ 200 MG/2 ML VIAL IM SCH (09:45)
[2019-06-17] MEDS: SIMVASTATIN 10 MG TABLET PO SCH (21:32)
[2019-06-18] MEDS: DOCUSATE SODIUM 100 MG CAPSULE PO SCH (09:50)
[2019-06-18] MEDS: LOSARTAN POTASSIUM 50 MG TABLET PO SCH (09:51)
[2019-06-18] MEDS: VANCOMYCIN HCL 1,000 MG in DEXTROSE 5%-WATER 250 ML IV SCH (09:51)
[2019-06-18] MEDS: METOPROLOL TARTRATE 50 MG TABLET PO SCH ×2 (09:52→21:23)
[2019-06-18] MEDS: POTASSIUM CHLORIDE 10 MEQ TABLET.ER PO SCH (09:52)
[2019-06-18] MEDS: ENOXAPARIN SODIUM INJ 40 MG/0.4 ML DISP.SYRIN SUBCUT SCH (09:52)
[2019-06-18] MEDS: FAMOTIDINE INJ/PF 20 MG/2 ML SDV IV SCH ×2 (09:52→21:23)
[2019-06-18] MEDS: THIAMINE HCL INJ 200 MG/2 ML VIAL IM SCH (14:17)
--- NOTE | 2019-06-18 14:55 | PDOC PROGRESS REPORT ---
Subjective Progress Note for:: 06/18/19 Subjective:: Complains of: Generalized fatigue and weakness Denies: SOB/DALEY/chest pain/abdominal pain/nausea/vomiting/diarrhea/constipation Reason For Visit: RESPIRATORY DISTRESS Physical Exam Vital Signs: Temp Pulse Resp BP Pulse Ox 98.8 F 71 18 154/96 H 100 06/18/19 08:37 06/18/19 08:37 06/18/19 08:37 06/18/19 08:37 06/18/19 08:37 Intake & Output 06/17/19 06/18/19 06/19/19 06:59 06:59 06:59 Intake Total 1240 2321 Output Total 410 1320 Balance 830 1001 Weight 93.1 kg 95.7 kg General appearance: PRESENT: no acute distress, well-developed, well-nourished Head exam: PRESENT: atraumatic, normocephalic Eye exam: PRESENT: conjunctiva pink Mouth exam: PRESENT: moist Respiratory exam: PRESENT: clear to auscultation arnoldo. ABSENT: rales, rhonchi, wheezes Cardiovascular exam: PRESENT: RRR. ABSENT: diastolic murmur, rubs, systolic murmur GI/Abdominal exam: PRESENT: ascites, distended, soft, other - RLQ Drain in place with clear/yellow fluid in bag Rectal exam: PRESENT: deferred Neurological exam: PRESENT: alert, awake, oriented to person, oriented to place, oriented to time, oriented to situation Psychiatric exam: PRESENT: normal mood. ABSENT: appropriate affect - odd affect, seems ambivalent about his admission and doesn't remember having abd drain placed at all Results Laboratory Results: 06/14/19 05:20 06/16/19 05:14 06/17/19 13:55 Ammonia < 8.7 L 06/09/19 06/09/19 06/11/19 23:25 23:25 05:05 Creatine Kinase 94 Troponin I 0.022 NT-Pro-B Natriuret Pep 1530 H 06/17/19 13:55 Creatine Kinase 97 Troponin I NT-Pro-B Natriuret Pep Impressions: Chest CT 06/10/19 00:00 IMPRESSION: Minimal right basilar atelectasis. No other significant findings. Retroperitoneal Abscess Drainage 06/10/19 00:00 IMPRESSION: Successful ultrasound guided drainage of the right pelvic fluid collection. Samples were obtained and sent to pathology for evaluation. Head CT 06/10/19 01:27 IMPRESSION: No acute intracranial process is identified. Age-related involutional changes are identified. Presumed old small vessel ischemic changes are seen predominantly in a periventricular distribution. Fluid Drainage 06/13/19 00:00 IMPRESSION: SUCCESSFUL PLACEMENT OF AN 8 [employer] ALL-PURPOSE DRAINAGE CATHETER INTO THE RIGHT LOWER QUADRANT FLUID COLLECTION. Chest X-Ray 06/13/19 06:00 IMPRESSION: STABLE APPEARANCE OF THE CHEST. Abdomen/Pelvis CT 06/13/19 08:00 IMPRESSION: Grossly stable right pelvic abscess with mild inflammation of the adjacent urinary bladder. Grossly stable tubular cystic structure along the lower left pelvis with no definite surrounding inflammatory changes. This may represent a lymphocele, loculated ascites or neoplasm. A superimposed infection is not excluded. TECHNICAL DOCUMENTATION: Quality ID # 436: Final reports with documentation of one or more dose reduction techniques (e.g., Automated exposure control, adjustment of the mA and/or kV according to patient size, use of iterative reconstruction technique) copyright 2011 [employer]- All Rights Reserved Venous Doppler Study 06/13/19 08:00 IMPRESSION: NO EVIDENCE OF DVT OR SVT IN THE RIGHT LEG. Assessment and Plan - Diagnosis (1) Encephalopathy acute Is this a current diagnosis for this admission?: Yes Plan: June 15, 2019 Difficult to know if this was related to infection or alcohol withdrawal. It was most likely the alcohol withdrawal. Patient although alert and oriented, is not completely back to baseline as he often forgets that he has a drain in his right lower quadrant abdomen and insists that it is a urinary catheter. Per nursing he also forgets what day it is from time to time. (2) Acute respiratory failure with hypoxia Is this a current diagnosis for this admission?: Yes Plan: -Patient presented with generalized symptoms of low grade fever, rigors, generalized weakness, and fatigue. -Patient denies recent symptoms of cough or shortness of breath. However, while in the ED, the patient was found to be tachypneic with RR in the 30s and room ai r SpO2 of 70%. -Influenza is negative. -COVID19 pending. -CXR is clear. -ABG reviewed -Supplemental oxygen as needed to maintain oxygen saturations >89% -Avoid nebulizers at this time and provide albuterol MDI with spacer as needed for wheezing. -resolved/resolving (3) Abnormal abdominal CT scan Is this a current diagnosis for this admission?: Yes Plan: 06/15/[address] revealed 2 fluid collections. Drain put in place (4) Alcohol dependence Qualifiers: Substance use status: in withdrawal Complication of substance-induced condition: with unspecified complication Qualified Code(s): F10.239 - Alcohol dependence with withdrawal, unspecified Is this a current diagnosis for this admission?: Yes Plan: -As noted above it appears that the patient was going through alcohol withdrawal on admission to the intensive care unit. This has resolved. -No further evidence of withdrawal at this time. Will encourage alcohol cessation after discharge. (5) Ataxia Is this a current diagnosis for this admission?: Yes Plan: -PT consulted (6) Fever Qualifiers: Fever type: due to other condition Qualified Code(s): R50.81 - Fever presenting with conditions classified elsewhere Is this a current diagnosis for this admission?: Yes Plan: -source is abscess in the right pelvis. A pigtail catheter was placed. -Fluid Cx positive for staph epidermidis initially and then on a consecutive sample. -Reportedly patient has exhibited a pattern of fever when he has gone through alcohol withdrawal in the past. He was drinking heavily on his cruise and this could also be a contributing factor -Now afebrile (7) Hyponatremia Is this a current diagnosis for this admission?: Yes Plan: -On admission his serum sodium was 127. At this time he hovers around the lower limit normal. This may very well be his baseline. Please see the research advisor notes for etiology of the hyponatremia on admission. -Serum sodium is now normal. monitor with serial labs. (8) Lymphocele Is this a current diagnosis for this admission?: Yes Plan: June 15, 2019 The patient had a prostatectomy in August. There was aggressive lymph node dissection. There is a fluid collection on the left pelvis that looks somewhat different than on the right. There does not appear to be a ring enhancement. This may be a lymphocele without infection. June 16, [address] a drain at this time. Will defer to the patient's urologist who he will need to see after discharge. (9) Obs/eval susp exp biolog agent Is this a current diagnosis for this admission?: Yes Plan: Covid 19 testing is still pending (10) Pelvic abscess in male Is this a current diagnosis for this admission?: Yes Plan: -As noted above the fluid collection in the right pelvis, based on cultures and imaging was likely an abscess. There is still significant drainage and therefore the drain will remain in place at this time. -Continue antibiotic therapy until completion. As long as there is significant fluid output we will leave the drain in place. -Dr. renteria called the [facility]. Reportedly spoke with Dr. Miah Villaseñor, the patient's oncologist (11) SIRS (systemic inflammatory response syndrome) Is this a current diagnosis for this admission?: Yes (12) Staphylococcus epidermidis infection Is this a current diagnosis for this admission?: Yes Plan: -The fluid from the right pelvic abscess was consistently positive for staph epidermidis. The patient is currently on vancomycin. -vancomycin - Time Time Spent with patient: 35 or more minutes Medications reviewed and adjusted accordingly: Yes - Inpatient Certification Based on my medical assessment, after consideration of the patient's comorbidities, presenting symptoms, or acuity I expect that the services needed warrant INPATIENT care.: Yes I certify that my determination is in accordance with my understanding of Medicare's requirements for reasonable and necessary INPATIENT services [42 CFR 412.3e].: Yes Medical Necessity: Significant Comorbidiites Make Outpatient Treatment Too Risky, Need Close Monitoring Due to Risk of Patient Decompensation, Need for IV Antibiotics
[2019-06-18] MEDS: SIMVASTATIN 10 MG TABLET PO SCH (21:23)
[2019-06-19] MEDS: ENOXAPARIN SODIUM INJ 40 MG/0.4 ML DISP.SYRIN SUBCUT SCH (09:43)
[2019-06-19] MEDS: LOSARTAN POTASSIUM 50 MG TABLET PO SCH (09:43)
[2019-06-19] MEDS: POTASSIUM CHLORIDE 10 MEQ TABLET.ER PO SCH (09:44)
[2019-06-19] MEDS: METOPROLOL TARTRATE 50 MG TABLET PO SCH ×2 (09:44→22:45)
[2019-06-19] MEDS: DOCUSATE SODIUM 100 MG CAPSULE PO SCH (09:44)
[2019-06-19] MEDS: FAMOTIDINE INJ/PF 20 MG/2 ML SDV IV SCH ×2 (09:44→22:46)
[2019-06-19] MEDS: THIAMINE HCL 100 MG TABLET PO SCH (09:44)
--- NOTE | 2019-06-19 12:06 | PDOC PROGRESS REPORT ---
Subjective Progress Note for:: 06/19/19 Subjective:: Complains of: Generalized fatigue and weakness, wants to leave hospital as soon as possible Denies: SOB/DALEY/chest pain/abdominal pain/nausea/vomiting/diarrhea/constipation Reason For Visit: RESPIRATORY DISTRESS Physical Exam Vital Signs: Temp Pulse Resp BP Pulse Ox 98.4 F 72 17 134/83 H 99 06/19/19 07:56 06/19/19 07:56 06/19/19 07:56 06/19/19 07:56 06/19/19 07:56 Intake & Output 06/18/19 06/19/19 06/20/19 06:59 06:59 06:59 Intake Total 2321 2722 Output Total 1320 400 Balance 1001 2322 Weight 95.7 kg 98.8 kg General appearance: PRESENT: no acute distress, well-developed, well-nourished Head exam: PRESENT: atraumatic, normocephalic Eye exam: PRESENT: conjunctiva pink Mouth exam: PRESENT: moist Respiratory exam: PRESENT: clear to auscultation arnoldo. ABSENT: rales, rhonchi, wheezes Cardiovascular exam: PRESENT: RRR. ABSENT: diastolic murmur, rubs, systolic murmur GI/Abdominal exam: PRESENT: normal bowel sounds, soft, other - RLQ drain in marycruz ce w/ clear/yellow fluid in bag. ABSENT: distended, guarding, mass, organolmegaly, rebound, tenderness Rectal exam: PRESENT: deferred Neurological exam: PRESENT: alert, awake, oriented to person, oriented to place, oriented to time, oriented to situation Psychiatric exam: PRESENT: appropriate affect, normal mood Skin exam: PRESENT: dry, intact, warm Results Laboratory Results: 06/14/19 05:20 06/16/19 05:14 06/09/19 06/09/19 06/11/19 23:25 23:25 05:05 Creatine Kinase 94 Troponin I 0.022 NT-Pro-B Natriuret Pep 1530 H 06/17/19 13:55 Creatine Kinase 97 Troponin I NT-Pro-B Natriuret Pep Impressions: Chest CT 06/10/19 00:00 IMPRESSION: Minimal right basilar atelectasis. No other significant findings. Retroperitoneal Abscess Drainage 06/10/19 00:00 IMPRESSION: Successful ultrasound guided drainage of the right pelvic fluid collection. Samples were obtained and sent to pathology for evaluation. Head CT 06/10/19 01:27 IMPRESSION: No acute intracranial process is identified. Age-related involutional changes are identified. Presumed old small vessel ischemic changes are seen predominantly in a periventricular distribution. Fluid Drainage 06/13/19 00:00 IMPRESSION: SUCCESSFUL PLACEMENT OF AN 8 [employer] ALL-PURPOSE DRAINAGE CATHETER INTO THE RIGHT LOWER QUADRANT FLUID COLLECTION. Chest X-Ray 06/13/19 06:00 IMPRESSION: STABLE APPEARANCE OF THE CHEST. Abdomen/Pelvis CT 06/13/19 08:00 IMPRESSION: Grossly stable right pelvic abscess with mild inflammation of the adjacent urinary bladder. Grossly stable tubular cystic structure along the lower left pelvis with no definite surrounding inflammatory changes. This may represent a lymphocele, loculated ascites or neoplasm. A superimposed infection is not excluded. TECHNICAL DOCUMENTATION: Quality ID # 436: Final reports with documentation of one or more dose reduction techniques (e.g., Automated exposure control, adjustment of the mA and/or kV according to patient size, use of iterative reconstruction technique) copyright 2011 [employer]- All Rights Reserved Venous Doppler Study 06/13/19 08:00 IMPRESSION: NO EVIDENCE OF DVT OR SVT IN THE RIGHT LEG. Assessment and Plan - Diagnosis (1) Encephalopathy acute Is this a current diagnosis for this admission?: Yes Plan: -Difficult to know if this was related to infection or alcohol withdrawal versus other etiology -Patient although alert and oriented, is not completely back to baseline as he often forgets that he has a drain in his right lower quadrant abdomen and insists that it is a urinary catheter. Per nursing he also forgets what day it is from time to time. -Check MRI brain to rule out CVA or other etiology causing intermittent confusion (2) Acute respiratory failure with hypoxia Is this a current diagnosis for this admission?: Yes Plan: -Patient presented with generalized symptoms of low grade fever, rigors, generalized weakness, and fatigue. -Patient denies recent symptoms of cough or shortness of breath. However, while in the ED, the patient was found to be tachypneic with RR in the 30s and room air SpO2 of 70%. -Influenza is negative. -COVID19 pending. -CXR is clear. -ABG reviewed -Supplemental oxygen as needed to maintain oxygen saturations >89% -Avoid nebulizers at this time and provide albuterol MDI with spacer as needed for wheezing. -resolved/resolving (3) Abnormal abdominal CT scan Is this a current diagnosis for this admission?: Yes (4) Alcohol dependence Qualifiers: Substance use status: in withdrawal Complication of substance-induced c ondition: with unspecified complication Qualified Code(s): F10.239 - Alcohol dependence with withdrawal, unspecified Is this a current diagnosis for this admission?: Yes (5) Ataxia Is this a current diagnosis for this admission?: Yes (6) Fever Qualifiers: Fever type: due to other condition Qualified Code(s): R50.81 - Fever presenting with conditions classified elsewhere Is this a current diagnosis for this admission?: Yes (7) Hyponatremia Is this a current diagnosis for this admission?: Yes Plan: -On admission his serum sodium was 127. At this time he hovers around the lower limit normal. This may very well be his baseline. Please see the precision aircraft structure assembler notes for etiology of the hyponatremia on admission. -Serum sodium is now normal. monitor with serial labs. Resolved (8) Lymphocele Is this a current diagnosis for this admission?: Yes (9) Obs/eval susp exp biolog agent Is this a current diagnosis for this admission?: Yes (10) Pelvic abscess in male Is this a current diagnosis for this admission?: Yes (11) SIRS (systemic inflammatory response syndrome) Is this a current diagnosis for this admission?: Yes (12) Staphylococcus epidermidis infection Is this a current diagnosis for this admission?: Yes - Time Time Spent with patient: 25-34 minutes Medications reviewed and adjusted accordingly: Yes - Inpatient Certification Medical Necessity: Significant Comorbidiites Make Outpatient Treatment Too Risky, Need Close Monitoring Due to Risk of Patient Decompensation, Risk of Complication if Not Cared For in Hospital
[2019-06-19] MEDS ORDERED: LORAZEPAM INJ 2 MG/1 ML VIAL IV PRN ×2 (13:00→14:37)
[2019-06-19 15:04] LABS: C DIFFICILE GDH NEGATIVE (NEGATIVE)
--- NOTE | 2019-06-19 15:35 | RADIOLOGY REPORT (SQ) ---
EXAM DESCRIPTION: MRI HEAD WITHOUT IMAGES COMPLETED DATE/TIME: 06/19/2019 3:23 pm REASON FOR STUDY: AMS, possible CVA COMPARISON: CT brain 06/10/2019 TECHNIQUE: Multiplanar imaging includes non-contrasted T1, T2, FLAIR, and diffusion with ADC map seq uences. Images stored on PACS. LIMITATIONS: Motion artifact, patient unable to tolerate complete MRI exam FINDINGS: Diffusion-weighted axial images demonstrate motion artifact. No acute ischemic change or restricted diffusion identified. T2 weighted images demonstrate age-appropriate prominence of the ventricles sulci. No gross acute in tracranial hemorrhage, mass effect, or midline shift. IMPRESSION: NO GROSS ACUTE ISCHEMIC CHANGE, INTRACRANIAL HEMORRHAGE, MASS EFFECT, OR MIDLINE SHIFT MOTION ARTIFACT THROUGHOUT THE STUDY EVIDENCE OF ACUTE STROKE: NO. TECHNICAL DOCUMENTATION: JOB ID: [id number] 2010 [employer]- All Rights Reserved Reading location - IP/workstation name: [email or web address]
[2019-06-19] MEDS: SIMVASTATIN 10 MG TABLET PO SCH (22:45)
[2019-06-20 09:12] LABS: ABSOLUTE EOSINOPHILS # (AUTO) 0.1 10^3/uL (0.0-0.6); ABSOLUTE LYMPHOCYTES (AUTO) 0.8 10^3/uL (0.5-4.7); ABSOLUTE MONOCYTES (AUTO) 0.6 10^3/uL (0.1-1.4); BASOPHILS % (AUTO) 0.6 % (0-2); EOSINOPHILS % (AUTO) 1.4 % (0-6); HEMATOCRIT 37.9 % (37.9-51.0); HEMOGLOBIN 13.1 g/dL (13.5-17.0); LYMPHOCYTES % (AUTO) 12.2 % (13-45); MEAN CORPUSCULAR HEMOGLOBIN 31.9 pg (27.0-33.4); MEAN CORPUSCULAR HGB CONC 34.6 g/dL (32.0-36.0); MEAN CORPUSCULAR VOLUME 92 fl (80-97); MONOCYTES % (AUTO) 9.2 % (3-13); PLATELET COUNT 473 10^3/uL (150-450); RED BLOOD COUNT 4.11 10^6/uL (4.35-5.55); RED CELL DISTRIBUTION WIDTH 13.4 % (11.5-14.0); SEGMENTED NEUTROPHILS % (AUTO) 76.6 % (42-78); TOTAL CELLS COUNTED % (AUTO) 100 %; WHITE BLOOD COUNT 6.5 10^3/uL (4.0-10.5)
[2019-06-20 09:34] LABS: ALBUMIN 3.2 g/dL (3.5-5.0); ALKALINE PHOSPHATASE 70 U/L (38-126); ANION GAP 8 (5-19); ASPARTATE AMINO TRANSFERASE 43 U/L (17-59); BILIRUBIN,TOTAL 0.7 mg/dL (0.2-1.3); BLOOD UREA NITROGEN 14 mg/dL (7-20); CALCIUM 9.2 mg/dL (8.4-10.2); CARBON DIOXIDE 24 mmol/L (22-30); CHLORIDE 101 mmol/L (98-107); GLUCOSE 110 mg/dL (75-110); POTASSIUM 4.5 mmol/L (3.6-5.0); TOTAL PROTEIN 5.9 g/dL (6.3-8.2)
[2019-06-20] MEDS: DOCUSATE SODIUM 100 MG CAPSULE PO SCH (10:19)
[2019-06-20] MEDS: METOPROLOL TARTRATE 50 MG TABLET PO SCH ×2 (10:19→21:25)
[2019-06-20] MEDS: POTASSIUM CHLORIDE 10 MEQ TABLET.ER PO SCH (10:19)
[2019-06-20] MEDS: THIAMINE HCL 100 MG TABLET PO SCH (10:19)
[2019-06-20] MEDS: LOSARTAN POTASSIUM 50 MG TABLET PO SCH (10:19)
[2019-06-20] MEDS: FAMOTIDINE INJ/PF 20 MG/2 ML SDV IV SCH ×2 (10:20→21:26)
[2019-06-20] MEDS: ENOXAPARIN SODIUM INJ 40 MG/0.4 ML DISP.SYRIN SUBCUT SCH (10:20)
--- NOTE | 2019-06-20 12:55 | PDOC PROGRESS REPORT ---
Subjective Progress Note for:: 06/20/19 Subjective:: Complains of: Generalized fatigue and weakness, agrees to go to SNF if indicated Denies: SOB/DALEY/chest pain/abdominal pain/nausea/vomiting/diarrhea/constipation Reason For Visit: RESPIRATORY DISTRESS Physical Exam Vital Signs: Temp Pulse Resp BP Pulse Ox 98.1 F 81 18 127/98 H 100 06/20/19 08:20 06/20/19 08:20 06/20/19 08:20 06/20/19 08:20 06/20/19 08:20 Intake & Output 06/19/19 06/20/19 06/21/19 06:59 06:59 06:59 Intake Total 2722 1195 Output Total 400 985 Balance 2322 210 Weight 98.8 kg 84 kg General appearance: PRESENT: no acute distress, well-developed, well-nourished Head exam: PRESENT: atraumatic, normocephalic Eye exam: PRESENT: conjunctiva pink Mouth exam: PRESENT: moist Respiratory exam: PRESENT: clear to auscultation arnoldo. ABSENT: rales, rhonchi, wheezes Cardiovascular exam: PRESENT: RRR. ABSENT: diastolic murmur, rubs, systolic murmur GI/Abdominal exam: PRESENT: normal bowel sounds, soft, other - abd drain with clear/bentley fluid in bag. ABSENT: distended, guarding, mass, organolmegaly, rebound, tenderness Rectal exam: PRESENT: deferred Neurological exam: PRESENT: alert, awake, oriented to person, oriented to place, oriented to time, oriented to situation Psychiatric exam: PRESENT: normal mood, unusual affect Skin exam: PRESENT: dry, intact, warm Results Laboratory Results: 06/20/19 08:48 06/20/19 08:48 06/20/19 06/20/19 08:48 08:48 WBC 6.5 RBC 4.11 L Hgb 13.1 L Hct 37.9 MCV 92 MCH 31.9 MCHC 34.6 RDW 13.4 Plt Count 473 H Seg Neutrophils % 76.6 Sodium 133.1 L Potassium 4.5 Chloride 101 Carbon Dioxide 24 Anion Gap 8 BUN 14 Creatinine 0.90 Est GFR ( Amer) > 60 Glucose 110 Calcium 9.2 Total Bilirubin 0.7 AST 43 Alkaline Phosphatase 70 Total Protein 5.9 L Albumin 3.2 L 06/10/19 17:30 Cerebral Spinal Fluid - Tube 1 (Csf) Viral Culture - Final 06/09/19 06/09/19 06/11/19 23:25 23:25 05:05 Creatine Kinase 94 Troponin I 0.022 NT-Pro-B Natriuret Pep 1530 H 06/17/19 13:55 Creatine Kinase 97 Troponin I NT-Pro-B Natriuret Pep Impressions: Chest CT 06/10/19 00:00 IMPRESSION: Minimal right basilar atelectasis. No other significant findings. Retroperitoneal Abscess Drainage 06/10/19 00:00 IMPRESSION: Successful ultrasound guided drainage of the right pelvic fluid collection. Samples were obtained and sent to pathology for evaluation. Head CT 06/10/19 01:27 IMPRESSION: No acute intracranial process is identified. Age-related involutional changes are identified. Presumed old small vessel ischemic changes are seen predominantly in a periventricular distribution. Fluid Drainage 06/13/19 00:00 IMPRESSION: SUCCESSFUL PLACEMENT OF AN 8 [employer] ALL-PURPOSE DRAINAGE CATHETER INTO THE RIGHT LOWER QUADRANT FLUID COLLECTION. Chest X-Ray 06/13/19 06:00 IMPRESSION: STABLE APPEARANCE OF THE CHEST. Abdomen/Pelvis CT 06/13/19 08:00 IMPRESSION: Grossly stable right pelvic abscess with mild inflammation of the adjacent urinary bladder. Grossly stable tubular cystic structure along the lower left pelvis with no definite surrounding inflammatory changes. This may represent a lymphocele, loculated ascites or neoplasm. A superimposed infection is not excluded. TECHNICAL DOCUMENTATION: Quality ID # 436: Final reports with documentation of one or more dose reduction techniques (e.g., Automated exposure control, adjustment of the mA and/or kV according to patient size, use of iterative reconstruction technique) copyright 2011 [employer]- All Rights Reserved Venous Doppler Study 06/13/19 08:00 IMPRESSION: NO EVIDENCE OF DVT OR SVT IN THE RIGHT LEG. Head MRI 06/19/19 00:00 IMPRESSION: NO GROSS ACUTE ISCHEMIC CHANGE, INTRACRANIAL HEMORRHAGE, MASS EFFECT, OR MIDLINE SHIFT MOTION ARTIFACT THROUGHOUT THE STUDY EVIDENCE OF ACUTE STROKE: NO. Assessment and Plan - Diagnosis (1) Encephalopathy acute Is this a current diagnosis for this admission?: Yes Plan: -Difficult to know if this was related to infection or alcohol withdrawal versus NPH; has incontinence with leg movement and unsteady/wobbly gait -Patient although alert and oriented, is not completely back to baseline as he often forgets that he has a drain in his right lower quadrant abdomen and insists that it is a urinary catheter. Per nursing he also forgets what day it is from time to time. -MRI brain showed no CVA or other acute findings, ventricles rather large (?NPH) -LP was done, however opening pressure either not done or not documented in chart -Must have close FU with Neurology after DC; we do not have neurology available here (2) Acute respiratory failure with hypoxia Is this a current diagnosis for this admission?: Yes Plan: -Patient presented with generalized symptoms of low grade fever, rigors, generalized weakness, and fatigue. -Patient denies recent symptoms of cough or shortness of breath. However, while in the ED, the patient was found to be tachypneic with RR in the 30s and room air SpO2 of 70%. -Influenza is negative. -COVID19 pending. -CXR is clear. -ABG reviewed -Supplemental oxygen as needed to maintain oxygen saturations >89% -Avoid nebulizers at this time and provide albuterol MDI with spacer as needed for wheezing. -resolved (3) Abnormal abdominal CT scan Is this a current diagnosis for this admission?: Yes (4) Alcohol dependence Qualifiers: Substance use status: in withdrawal Complication of substance-induced condition: with unspecified complication Qualified Code(s): F10.239 - Alcohol dependence with withdrawal, unspecified Is this a current diagnosis for this admission?: Yes (5) Ataxia Is this a current diagnosis for this admission?: Yes (6) Fever Qualifiers: Fever type: due to other condition Qualified Code(s): R50.81 - Fever pr esenting with conditions classified elsewhere Is this a current diagnosis for this admission?: Yes (7) Hyponatremia Is this a current diagnosis for this admission?: Yes (8) Lymphocele Is this a current diagnosis for this admission?: Yes Plan: -The patient had a prostatectomy in August. There was aggressive lymph node dissection. There is a fluid collection on the left pelvis that looks somewhat different than on the right. There does not appear to be a ring enhancement. This may be a lymphocele without infection given his recent LN dissection for prostate cancer -Defer to the patient's urologist who he will need to see after discharge. We do not have urology available here (9) Obs/eval susp exp biolog agent Is this a current diagnosis for this admission?: Yes Plan: Covid 19 testing is NEGATIVE - low clinical suspicion, no need to retest at this time (10) Pelvic abscess in male Is this a current diagnosis for this admission?: Yes (11) SIRS (systemic inflammatory response syndrome) Is this a current diagnosis for this admission?: Yes (12) Staphylococcus epidermidis infection Is this a current diagnosis for this admission?: Yes - Time Time Spent with patient: 25-34 minutes Medications reviewed and adjusted accordingly: Yes Anticipated discharge: SNF Within: within 48 hours - Inpatient Certification Medical Necessity: Significant Comorbidiites Make Outpatient Treatment Too Risky, Need Close Monitoring Due to Risk of Patient Decompensation, Risk of Complication if Not Cared For in Hospital
[2019-06-20] MEDS ORDERED: ACETAMINOPHEN 325 MG TABLET PO PRN (20:43)
[2019-06-20] MEDS ORDERED: ACETAMINOPHEN 325 MG TABLET ONE (20:48)
[2019-06-20] MEDS: SIMVASTATIN 10 MG TABLET PO SCH (21:25)
[2019-06-21] MEDS: THIAMINE HCL 100 MG TABLET PO SCH (10:13)
[2019-06-21] MEDS: FAMOTIDINE INJ/PF 20 MG/2 ML SDV IV SCH (10:13)
[2019-06-21] MEDS: POTASSIUM CHLORIDE 10 MEQ TABLET.ER PO SCH (10:13)
[2019-06-21] MEDS: ENOXAPARIN SODIUM INJ 40 MG/0.4 ML DISP.SYRIN SUBCUT SCH (10:13)
[2019-06-21] MEDS: DOCUSATE SODIUM 100 MG CAPSULE PO SCH (10:13)
[2019-06-21] MEDS: METOPROLOL TARTRATE 50 MG TABLET PO SCH (10:13)
[2019-06-21] MEDS: LOSARTAN POTASSIUM 50 MG TABLET PO SCH (10:13)
[2019-06-21 14:04] VITALS: BP 131/69
--- NOTE | 2019-06-21 15:08 | PDOC DISCHARGE SUMMARY ---
Impression - Admit/DC Date/PCP Admission Date/Primary Care Provider: 06/10/19 09:34 OLGA BHAGAT MD Discharge Date: 06/21/19 - Discharge Diagnosis (1) Encephalopathy acute Is this a current diagnosis for this admission?: Yes (2) Acute respiratory failure with hypoxia Is this a current diagnosis for this admission?: Yes (3) Abnormal abdominal CT scan Is this a current diagnosis for this admission?: Yes (4) Alcohol dependence Is this a current diagnosis for this admission?: Yes (5) Ataxia Is this a current diagnosis for this admission?: Yes (6) Fever Is this a current diagnosis for this admission?: Yes (7) Hyponatremia Is this a current diagnosis for this admission?: Yes (8) Lymphocele Is this a current diagnosis for this admission?: Yes (9) Obs/eval susp exp biolog agent Is this a current diagnosis for this admission?: Yes (10) Pelvic abscess in male Is this a current diagnosis for this admission?: Yes (11) SIRS (systemic inflammatory response syndrome) Is this a current diagnosis for this admission?: Yes (12) Staphylococcus epidermidis infection Is this a current diagnosis for this admission?: Yes - Additional Information Resuscitation Status: Chemical Code Only - He would want to be intubated if necessary but does not want CPR or countershocks if he codes Discharge Diet: Regular Discharge Activity: Activity As Tolerated Referrals: OLGA BHAGAT MD [Primary Care Provider] - 06/28/19 8:45 am Prescriptions: Losartan Potassium [Cozaar 50 mg Tablet] 100 mg PO DAILY #30 tablet Potassium Chloride [Klor-Con 10 Meq Tablet ER] 20 meq PO DAILY #30 tablet.er Thiamine HCl [Thiamine 100 mg Tablet] 200 mg PO DAILY #30 tablet Albuterol Sulfate [Ventolin Hfa 8 gm Mdi] 2 puff IH Q4HP PRN #30 inhaler PRN Reason: Home Medications: Aspirin [Ecotrin 81 mg EC Tablet] 1 tab PO DAILY 04/07/18 Furosemide [Lasix 20 mg Tablet] 1 tab PO DAILY 04/07/18 [place] 1 tab PO DAILY 04/07/18 Simvastatin 20 mg PO QHS 04/07/18 Metoprolol Tartrate [Lopressor 100 mg Tablet] 50 mg PO Q12 06/10/19 Albuterol Sulfate [Ventolin Hfa 8 gm Mdi] 2 puff IH Q4HP PRN #30 inhaler 06/21/19 Losartan Potassium [Cozaar 50 mg Tablet] 100 mg PO DAILY #30 tablet 06/21/19 Potassium Chloride [Klor-Con 10 Meq Tablet ER] 20 meq PO DAILY #30 tablet.er 06/21/19 Thiamine HCl [Thiamine 100 mg Tablet] 200 mg PO DAILY #30 tablet 06/21/19 History of Present Illiness History of Present Illness: PER H&P: "ANGEL CLARK is a 69 year old male with a past medical history significant for hypertension, remote prostate cancer, and arthritis who presented to the emergency department last night with a complaint of 1 week of progressively worsening generalized weakness, severe fatigue, and rigors. He denies high fevers at home, although, admits that he has not been checking consistently. Upon arrival to the emergency department, he developed shortness of breath with hypoxia (70%) on room air and diarrhea. Of note, the patient returned from a 73-day cruise to [facility] 8 days ago and has been and self quarantine at home since. Evaluation in the emergency department revealed low-grade fever (99.6), tachycardia (HR 142), stable blood pressure, tachypnea (RR 36), and hypoxia on room air (70%). CBC shows mild leukocytosis with 11.4, lymphocytosis of 7.4, normal coags, dehydration by chemistry with mild hyponatremia, hypokalemia, mildly elevated BUN, total bili 2.0, normal lactic acid, normal troponin, benign urinalysis, negative flu. COVID[address] and chest x-ray are benign. Abdominal CT revealed multiple parapelvic masses possibly indicating abscess versus chronic hematoma or other neoplasm. He has been provided 1 dose of IV Zosyn and is referred to the hospitalist service for admission and management of the above-stated complaints and findings." Hospital Course Hospital Course: (1) Encephalopathy acuteresolved/resolving -Difficult to know if this was related to infection or alcohol withdrawal versus NPH; has incontinence with leg movement and unsteady/wobbly gait -Patient although alert and oriented, is not completely back to baseline as he often forgets that he has a drain in his right lower quadrant abdomen and insists that it is a urinary catheter. Per nursing he also forgets what day it is from time to time. -MRI brain showed no CVA or other acute findings, ventricles rather large (?NPH) -LP was done, however opening pressure either not done or not documented in chart -Must have close FU with Neurology after DC; we do not have neurology available here (2) Acute respiratory failure with hypoxiaresolved -Patient presented with generalized symptoms of low grade fever, rigors, generalized weakness, and fatigue. -Patient denies recent symptoms of cough or shortness of breath. However, while in the ED, the patient was found to be tachypneic with RR in the 30s and room air SpO2 of 70%. -Influenza is negative. -COVID19 pending. -CXR is clear. -ABG reviewed -Supplemental oxygen as needed to maintain oxygen saturations >89%; weaned off supplemental oxygen and breathing room air comfortably -Albuterol MDI with spacer as needed for wheezing. -resolved (3) Abnormal abdominal CT scan (4) Alcohol dependence (5) Ataxia (6) Fever (7) Hyponatremia (8) Lymphocele -The patient had a prostatectomy in August. There was aggressive lymph node dissection. There is a fluid collection on the left pelvis that looks somewhat different than on the right. There does not appear to be a ring enhancement. This may be a lymphocele without infection given his recent LN dissection for prostate cancer -Defer to the patient's urologist who he will need to see after discharge. We do not have urology available here -drain to remain in place at DC as it still has approx 700cc clear fluid coming out daily; defer to urology to decide if/when to remove this drain after they examine their surgical site in person (9) Obs/eval susp exp biolog agent Covid 19 testing is NEGATIVE - low clinical suspicion, no need to retest at this time (10) Pelvic abscess in male (11) SIRS (systemic inflammatory response syndrome) (12) Staphylococcus epidermidis infection Physical Exam Vital Signs: Temp Pulse Resp BP Pulse Ox 97.8 F 73 18 131/69 H 100 06/21/19 14:02 06/21/19 14:02 06/21/19 14:02 06/21/19 14:02 06/21/19 14:02 Intake & Output 06/20/19 06/21/19 06/22/19 06:59 06:59 06:59 Intake Total 1195 1434 Output Total 985 960 165 Balance 210 474 -165 Weight 84 kg 82.8 kg General appearance: PRESENT: no acute distress, well-developed, well-nourished Head exam: PRESENT: atraumatic, normocephalic Eye exam: PRESENT: conjunctiva pink Mouth exam: PRESENT: moist Respiratory exam: PRESENT: clear to auscultation [place]. ABSENT: rales, rhonchi, wheezes Cardiovascular exam: PRESENT: RRR. ABSENT: diastolic murmur, rubs, systolic murmur GI/Abdominal exam: PRESENT: normal bowel sounds, soft, other - Abdominal drain in place and right lower quadrant with mild amount of clear/green-tinged fluid in bag, nontender around insertion site. ABSENT: distended, guarding, mass, organolmegaly, rebound, tenderness Rectal exam: PRESENT: deferred Neurological exam: PRESENT: alert, awake, oriented to person, oriented to place, oriented to time, oriented to situation, CN II-XII grossly intact. ABSENT: motor sensory deficit Psychiatric exam: PRESENT: appropriate affect, normal mood Skin exam: PRESENT: dry, intact, warm Results Laboratory Results: WBC 6.5 10^3/uL (4.0-10.5) 06/20/19 08:48 RBC 4.11 10^6/uL (4.35-5.55) L 06/20/19 08:48 Hgb 13.1 g/dL (13.5-17.0) L 06/20/19 08:48 Hct 37.9 % (37.9-51.0) 06/20/19 08:48 MCV 92 fl (80-97) 06/20/19 08:48 MCH 31.9 pg (27.0-33.4) 06/20/19 08:48 MCHC 34.6 g/dL (32.0-36.0) 06/20/19 08:48 RDW 13.4 % (11.5-14.0) 06/20/19 08:48 Plt Count 473 10^3/uL (150-450) H 06/20/19 08:48 Lymph % (Auto) 12.2 % (13-45) L 06/20/19 08:48 [place] % (Auto) 9.2 % (3-13) 06/20/19 08:48 Eos % (Auto) 1.4 % (0-6) 06/20/19 08:48 Baso % (Auto) 0.6 % (0-2) 06/20/19 08:48 Absolute Neuts (auto) 5.0 10^3/uL (1.7-8.2) 06/20/19 08:48 Absolute Lymphs (auto) 0.8 10^3/uL (0.5-4.7) 06/20/19 08:48 Absolute Monos (auto) 0.6 10^3/uL (0.1-1.4) 06/20/19 08:48 Absolute Eos (auto) 0.1 10^3/uL (0.0-0.6) 06/20/19 08:48 Absolute Basos (auto) 0.0 10^3/uL (0.0-0.2) 06/20/19 08:48 Total Counted 100 06/13/19 04:22 Seg Neutrophils % 76.6 % (42-78) 06/20/19 08:48 Seg Neuts % (Manual) 79 % (42-78) H 06/13/19 04:22 Band Neutrophils % 6 % (3-5) H 06/13/19 04:22 Lymphocytes % (Manual) 5 % (13-45) L 06/13/19 04:22 Monocytes % (Manual) 10 % (3-13) 06/13/19 04:22 Eosinophils % (Manual) 0 % (0-6) 06/13/19 04:22 Basophils % (Manual) 0 % (0-2) 06/13/19 04:22 Abs Neuts (Manual) 8.8 10^3/uL (1.7-8.2) H 06/13/19 04:22 Abs Lymphs (Manual) 0.5 10^3/uL (0.5-4.7) 06/13/19 04:22 Abs Monocytes (Manual) 1.0 10^3/uL (0.1-1.4) 06/13/19 04:22 Absolute Eos (Manual) 0.0 10^3/uL (0.0-0.6) 06/13/19 04:22 Abs Basophils (Manual) 0.0 10^3/uL (0.0-0.2) 06/13/19 04:22 Platelet Comment ADEQUATE 06/13/19 04:22 RBC Morph Comment NORMO-CYTIC/CHROMIC 06/13/19 04:22 PT 16.0 SEC (11.4-15.4) H 06/13/19 04:22 INR 1.27 06/13/19 04:22 APTT 42.8 SEC (23.5-35.8) H 06/13/19 04:22 Carbonic Acid 0.93 mmol/L (1.05-1.35) L 06/11/19 05:06 HCO3/H2CO3 Ratio 22:1 06/11/19 05:06 ABG pH 7.44 (7.35-7.45) 06/11/19 05:06 ABG pCO2 30.9 mmHg (35-45) L 06/11/19 05:06 ABG pO2 103.2 mmHg (80-100) H 06/11/19 05:06 ABG HCO3 20.7 mmol/L (20-24) 06/11/19 05:06 ABG Total CO2 21.7 mmol/L (23-27) L 06/11/19 05:06 ABG O2 Saturation 98.0 % (94-98) 06/11/19 05:06 ABG Base Excess -2.3 mmol/L 06/11/19 05:06 VBG pH 7.47 (7.30-7.42) H 06/09/19 23:54 VBG pCO2 30.3 mmHg (35-63) L 06/09/19 23:54 VBG HCO3 21.5 mmol/L (20-32) 06/09/19 23:54 VBG Base Excess -0.8 mmol/L 06/09/19 23:54 FiO2 3L 06/11/19 05:06 Sodium 133.1 mmol/L (137-145) L 06/20/19 08:48 Potassium 4.5 mmol/L (3.6-5.0) 06/20/19 08:48 Chloride 101 mmol/L (98-107) 06/20/19 08:48 Carbon Dioxide 24 mmol/L (22-30) 06/20/19 08:48 Anion Gap 8 (5-19) 06/20/19 08:48 BUN 14 mg/dL (7-20) 06/20/19 08:48 Creatinine 0.90 mg/dL (0.52-1.25) 06/20/19 08:48 Est GFR ( Amer) > 60 (>60) 06/20/19 08:48 Est GFR (MDRD) Non-Af > 60 (>60) 06/20/19 08:48 Glucose 110 mg/dL (75-110) 06/20/19 08:48 Hemoglobin A1c % 5.1 % (4.7-6.0) 06/11/19 05:05 Lactic Acid 1.0 mmol/L (0.7-2.1) 06/10/19 06:35 Calcium 9.2 mg/dL (8.4-10.2) 06/20/19 08:48 Phosphorus 3.2 mg/dL (2.5-4.5) 06/14/19 05:20 Magnesium 2.1 mg/dL (1.6-2.3) 06/16/19 05:14 Ferritin 949.00 ng/mL (17.9-464.0) H 06/10/19 10:11 Total Bilirubin 0.7 mg/dL (0.2-1.3) 06/20/19 08:48 Direct Bilirubin 0.0 mg/dL (0.0-0.4) 06/20/19 08:48 Neonat Total Bilirubin Not Reportable 06/20/19 08:48 Neonat Direct Bilirubin Not Reportable 06/20/19 08:48 Neonat Indirect Bili Not Reportable 06/20/19 08:48 AST 43 U/L (17-59) 06/20/19 08:48 ALT 61 U/L (<50) H 06/20/19 08:48 Alkaline Phosphatase 70 U/L (38-126) 06/20/19 08:48 Ammonia < 8.7 umol/L (9-33) L 06/17/19 13:55 Creatine Kinase 97 U/L (55-170) 06/17/19 13:55 Myoglobin 85 ng/mL (28-72) H 06/17/19 13:55 Troponin I 0.022 ng/mL 06/09/19 23:25 NT-Pro-B Natriuret Pep 1530 pg/mL (<125) H 06/11/19 05:05 Total Protein 5.9 g/dL (6.3-8.2) L 06/20/19 08:48 Albumin 3.2 g/dL (3.5-5.0) L 06/20/19 08:48 Lipase 190.5 U/L (23-300) 06/09/19 23:25 Prostate Specific Ag <0.1 ng/mL (0.0-4.0) 06/15/19 10:23 Free PSA <0.02 ng/mL (N/A) 06/15/19 10:23 % Free PSA TNP 06/15/19 10:23 TSH 2.50 uIU/mL (0.47-4.68) 06/11/19 05:05 Urine Color YELLOW 06/09/19 23:46 Urine Appearance CLEAR 06/09/19 23:46 Urine pH 5.0 (5.0-9.0) 06/09/19 23:46 Ur Specific [place] 1.019 06/09/19 23:46 Urine Protein 30 mg/dL (NEGATIVE) H 06/09/19 23:46 Urine Glucose (UA) NEGATIVE mg/dL (NEGATIVE) 06/09/19 23:46 Urine Ketones 20 mg/dL (NEGATIVE) H 06/09/19 23:46 Urine Blood SMALL (NEGATIVE) H 06/09/19 23:46 Urine Nitrite (Reflex) NEGATIVE (NEGATIVE) 06/09/19 23:46 Urine Bilirubin NEGATIVE (NEGATIVE) 06/09/19 23:46 Urine Urobilinogen NEGATIVE mg/dL (<2.0) 06/09/19 23:46 Leukocyte Esterase Rfl NEGATIVE (NEGATIVE) 06/09/19 23:46 Urine RBC (Auto) 2 /HPF 06/09/19 23:46 Urine WBC (Reflex) 2 /HPF 06/09/19 23:46 Squamous Epi Cells Auto <1 /HPF 06/09/19 23:46 Urine Mucus (Auto) RARE /LPF 06/09/19 23:46 Urine Ascorbic Acid NEGATIVE (NEGATIVE) 06/09/19 23:46 Fluid Type Cancelled 06/10/19 14:50 Fluid Source Cancelled 06/10/19 14:50 Fluid Tube Number 3 06/10/19 17:30 Fluid Color Cancelled 06/10/19 14:50 Fluid Appearance Cancelled 06/10/19 14:50 Fluid Viscosity Cancelled 06/10/19 14:50 Fluid WBC Cancelled 06/10/19 14:50 Fluid RBC Cancelled 06/10/19 14:50 Fluid Seg Neutrophils Cancelled 06/10/19 14:50 Fluid Lymphocytes Cancelled 06/10/19 14:50 Fluid Monocytes Cancelled 06/10/19 14:50 Fluid Eosinophils Cancelled 06/10/19 14:50 Fluid Basophils Cancelled 06/10/19 14:50 CSF Volume 2.0 CC 06/10/19 17:30 CSF Appearance CLEAR 06/10/19 17:30 CSF Color COLORLESS 06/10/19 17:30 CSF WBC 0 /uL (0-5) 06/10/19 17:30 CSF RBC 1 /uL (0-10) 06/10/19 17:30 CSF Glucose 69 mg/dL (40-70) 06/10/19 17:30 CSF Total Protein 53 mg/dL (12-60) 06/10/19 17:30 Stl C. Difficile GDH Ag NEGATIVE (NEGATIVE) 06/19/19 12:35 Stl C.difficile Tox A&B NEGATIVE (NEGATIVE) 06/19/19 12:35 Time Trough Drawn 1023 06/15/19 10:23 Vancomycin Trough 13.3 ug/mL (5.0-20.0) 06/15/19 10:23 COVID-19 Source NASAL WASHING 06/09/19 23:59 COVID-19 (CECILIA) Not Detected (Not Detect) 06/09/19 23:59 Influenza A (Rapid) NEGATIVE (NEGATIVE) 06/09/19 23:59 Influenza B (Rapid) NEGATIVE (NEGATIVE) 06/09/19 23:59 Blood Parasite Screen NO ORGANISMS SEEN 06/11/19 11:29 Slides for Path Review SEE COMMENT 06/11/19 11:29 06/09/19 06/11/19 23:25 05:05 Troponin I 0.022 NT-Pro-B Natriuret Pep 1530 H Impressions: Chest CT 06/10/19 00:00 IMPRESSION: Minimal right basilar atelectasis. No other significant findings. Retroperitoneal Abscess Drainage 06/10/19 00:00 IMPRESSION: Successful ultrasound guided drainage of the right pelvic fluid collection. Samples were obtained and sent to pathology for evaluation. Chest X-Ray 06/10/19 01:27 IMPRESSION: No evidence of active intrathoracic disease. Chronic parenchymal lung change Head CT 06/10/19 01:27 IMPRESSION: No acute intracranial process is identified. Age-related involutional changes are identified. Presumed old small vessel ischemic changes are seen predominantly in a periventricular distribution. Abdomen/Pelvis CT 06/10/19 04:46 IMPRESSION: 1. 11 cm right parapelvic mass may indicate an abscess, chronic hematoma, or other neoplasm. 2. 10 cm left paracentral tubular cystic collection medial to the left psoas indicate a lymphocele or other neoplasm. 3. Possible low-grade obstruction at the right distal ureter. 4. 0.7 cm nonobstructing left renal stone. Chest X-Ray 06/11/19 06:00 IMPRESSION: No acute findings visualized in the chest. Fluid Drainage 06/13/19 00:00 IMPRESSION: SUCCESSFUL PLACEMENT OF AN 8 NIUEAN ALL-PURPOSE DRAINAGE CATHETER INTO THE RIGHT LOWER QUADRANT FLUID COLLECTION. Chest X-Ray 06/13/19 06:00 IMPRESSION: STABLE APPEARANCE OF THE CHEST. Abdomen/Pelvis CT 06/13/19 08:00 IMPRESSION: Grossly stable right pelvic abscess with mild inflammation of the adjacent urinary bladder. Grossly stable tubular cystic structure along the lower left pelvis with no definite surrounding inflammatory changes. This may represent a lymphocele, loculated ascites or neoplasm. A superimposed infection is not excluded. TECHNICAL DOCUMENTATION: Quality ID # 436: Final reports with documentation of one or more dose reduction techniques (e.g., Automated exposure control, adjustment of the mA and/or kV according to patient size, use of iterative reconstruction technique) copyright 2011 [employer]- All Rights Reserved Venous Doppler Study 06/13/19 08:00 IMPRESSION: NO EVIDENCE OF DVT OR SVT IN THE RIGHT LEG. Head MRI 06/19/19 00:00 IMPRESSION: NO GROSS ACUTE ISCHEMIC CHANGE, INTRACRANIAL HEMORRHAGE, MASS EFFECT, OR MIDLINE SHIFT MOTION ARTIFACT THROUGHOUT THE STUDY EVIDENCE OF ACUTE STROKE: NO. Plan Plan of Treatment: Follow-up with PCP Follow-up with neurologist Follow-up urologist Defer to urologist to determine when/if abdominal drain will be removed Discussed with spouse that patient requires home health and she has chosen to independently hire a therapist to come to their home. Time Spent: Greater than 30 Minutes Stroke Is this a Stroke Patient?: No Acute Heart Failure - Is this a Heart Failure Patient?: No
== END 2019-06-21 17:46 | disposition home health service (06) | DRG 356 ==
LOC: ER 23:21 → EH 06-10 09:34 → ICU 06-10 11:00 → 5 06-14 16:49 → 3W 06-19 18:24
PROVIDERS: ADMIT Family Medicine; ATTEND Internal Medicine
PROC: 0WH Anatomical Regions, General, Insertion (ICD-10-PCS; principal; 2019-06-10)
PROC: 0J9C3ZX Drainage of Pelvic Region Subcutaneous Tissue and Fascia, Percutaneous Approach, Diagnostic (ICD-10-PCS; 2019-06-10)
PROC: 009U3ZX Drainage of Spinal Canal, Percutaneous Approach, Diagnostic (ICD-10-PCS; 2019-06-10)
DX: K65.1 Peritoneal abscess (principal); J96.01 Acute respiratory failure with hypoxia; G93.40 Encephalopathy, unspecified; R65.10 Systemic inflammatory response syndrome (SIRS) of non-infectious origin without acute organ dysfunction; E87.1 Hypo-osmolality and hyponatremia; F10.239 Alcohol dependence with withdrawal, unspecified; I89.8 Other specified noninfective disorders of lymphatic vessels and lymph nodes; E86.0 Dehydration; I10 Essential (primary) hypertension; M19.90 Unspecified osteoarthritis, unspecified site; E87.6 Hypokalemia; E78.5 Hyperlipidemia, unspecified; D72.829 Elevated white blood cell count, unspecified; R27.0 Ataxia, unspecified; R19.7 Diarrhea, unspecified; Z85.46 Personal history of malignant neoplasm of prostate; Z03.818 Encounter for observation for suspected exposure to other biological agents ruled out; Z87.891 Personal history of nicotine dependence; Z79.82 Long term (current) use of aspirin; Z79.899 Other long term (current) drug therapy
CPT/HCPCS: 36415; 49405; 49406; 70450; 70551; 71045; 71250; 74177; 80048; 80053; 80202; 81001; 82140; 82550; 82728; 82803; 82945; 83036; 83605; 83690; 83735; 83874; 83880; 84100; 84154; 84157; 84443; 84484; 85025; 85610; 85730; 87015; 87040; 87045; 87070; 87075; 87077; 87177; 87186; 87205; 87207; 87252; 87324; 87449; 87635; 87804; 88305; 89050; 93005; 93010; 93306; 93971; 96361; 96365; 96366; 96368; 99231; 99285; 99291; C1729; C1769; C1894; J1630; J1650; J1940; J2060; J2543; J3370; J3411; J3475; J3480; J3490; J7030; J7042; J7050; J7060; J7121; S0028